=== PATIENT | female | born 1930 | race Caucasian/White ===

== ENCOUNTER 2018-08-22 06:51 | Inpatient (IN) | payer MEDICARE, BC ==
[~2018-08-22] VITALS: Ht 152.4 cm; Wt 70.0 kg
[~2018-08-22 06:51] MED LIST: ADVAIR 250-501 EACH PO; ALPHAGAN P5 ML OP; ASPIRIN EC81 MG PO; BENZONATATE100 MG PO; CARVEDILOL12.5 MG PO; CITALOPRAM HBR20 MG PO; CLONIDINE HCL0.3 MG PO; DOCUSATE SODIU100 MG PO; HYDRALAZINE HCL25 MG PO; JANUVIA100 MG PO; KEFLEX500 MG PO; KLOR-CON M2020 MEQ PEG; LANTUS 3ML100 UNITS/ SQ; LASIX40 MG PO; LATANOPROST2.5 ML OP; LEVOTHYROXINE50 MCG PO; LISINOPRIL10 MG PO; MAPAP ARTHRITI650 MG PO; MIRTAZAPINE15 MG PO; MUCINEX600 MG PO; OMEPRAZOLE40 MG PO; POLYETHYLENE GL17 GM PO; PROMETHAZINE HC25 M1 PO; VENTOLIN HFA18 GM INH
--- OUTSIDE RECORDS SUMMARY | 2018-08-22 06:53 | XMS REPORT ---
Author [facility] Address Unknown Phone Unavailable Care Team Providers Care Landing Signal Officer Name Role Phone Unavailable Unavailable Payers Payer Name Policy Type Policy Number Effective Date Expiration Date Problems This patient has no known problems. Allergies, Adverse Reactions, Alerts Allergy Name Allergy Type Status Severity Reaction(s) Onset Date Inactive Date Treating Clinician Comments Penicillins DA Active SV 2018-07-28 00:00:00 Sulfa (Sulfonamide Antibiotics) DA Active MO 2018-07-28 00:00:00 codeine DA Active MO 2018-07-28 00:00:00 Medications This patient has no known medications.
[2018-08-22] MEDS ORDERED: HYDRALAZINE HCL 20 MG/ML VIAL IV ONE (09:00)
[2018-08-22] MEDS ORDERED: ALBUTEROL/IPRATROPIUM 3 ML NEB NEB ONE ×2 (09:00→12:30)
[2018-08-22 09:06] LABS: CLARITY,URINE SL CLOUDY (CLEAR); COLOR,URINE YELLOW (YELLOW)
[2018-08-22 09:07] LABS: KETONES,URINE NEGATIVE (NEGATIVE); LEUKOCYTE ESTERASE ,URINE 1+ (NEGATIVE); NITRITE,URINE NEGATIVE (NEGATIVE); PROTEIN,URINE DIPSTICK 2+ (NEGATIVE)
[2018-08-22 09:08] LABS: AMPHETAMINES SCREEN,URINE NEGATIVE (NEGATIVE); BENZODIAZEPINES SCREEN,URINE NEGATIVE (NEGATIVE); BILIRUBIN,URINE NEGATIVE (NEGATIVE); PHENCYCLIDINE SCREEN,URINE NEGATIVE (NEGATIVE); URINE UROBILINOGEN 0.2 mg/dL (0.2 - 1)
[2018-08-22 09:14] LABS: BACTERIA,URINE MODERATE /HPF; EPITHELIAL CELLS,URINE RARE /LPF
[2018-08-22 09:15] LABS: WBC,URINE (MAN) 0-5 /HPF (0-5)
[2018-08-22 09:21] LABS: BASOPHILS % 0.4 % (0.0-1.0); EOSINOPHILS # (AUTO) 0.1 (0.0-0.4); EOSINOPHILS % 1.2 % (0.0-6.0); LYMPHOCYTES # (AUTO) 0.8 (1.0-3.2); MEAN CORPUSCULAR HEMOGLOBIN 24.9 pg (28-32); MEAN CORPUSCULAR HGB CONC 29.3 g/dL (31-35); MEAN CORPUSCULAR VOLUME 85.1 fL (81-99); MONOCYTES # (AUTO) 0.5 (0.2-0.8); MONOCYTES % 6.8 % (4.4-11.3); NEUTROPHILS # (AUTO) 5.9 (2.1-6.9); NEUTROPHILS % 80.1 % (38.7-80.0); PLATELET COUNT 278 x10e3/uL (140-360); RED BLOOD COUNT 3.29 x10e6/uL (3.6-5.1); RED CELL DISTRIBUTION WIDTH 17.1 % (11.7-14.4)
[2018-08-22 09:31] LABS: HEMOGLOBIN 8.2 g/dL (12.0-16.0)
[2018-08-22 09:47] LABS: ALBUMIN 2.9 g/dL (3.5-5.0); ALBUMIN/GLOBULIN RATIO 0.7 (0.8-2.0); ALKALINE PHOSPHATASE 56 IU/L (40-150); ANION GAP 18.2 mmol/L (8-16); BLOOD UREA NITROGEN 43 mg/dL (7-26); BUN/CREATININE RATIO 15 (6-25); CALCIUM 9.5 mg/dL (8.4-10.2); CARBON DIOXIDE 20 mmol/L (22-29); CHLORIDE 105 mmol/L (98-107); CREATININE, SERUM 2.85 mg/dL (0.57-1.11); EST GLOMERULAR FILTRATION RATE 16 ML/MIN (60-); GLUCOSE 67 mg/dL (74-118); MAGNESIUM 2.2 MG/DL (1.3-2.1); PHOSPHORUS 4.8 MG/DL (2.3-4.7); POTASSIUM 4.2 mmol/L (3.5-5.1); SODIUM 139 mmol/L (136-145)
[2018-08-22 09:48] LABS: ALANINE AMINOTRANSFERASE < 6 IU/L (0-55)
[2018-08-22 09:49] LABS: B-TYPE NATRIURETIC PEPTIDE2 777.7 pg/mL (0-100)
[2018-08-22 10:07] LABS: THYROID STIMULATING HORMONE 1.336 uIU/mL (0.350-4.940)
[2018-08-22] MEDS ORDERED: DEXTROSE 10% 250 ML IV SCH (10:30)
[2018-08-22] MEDS ORDERED: SODIUM CHLORIDE 0.9% 500ML 500 ML IV ONE (10:30)
--- NOTE | 2018-08-22 10:50 | Diagnostic Imaging Report ---
PROCEDURE: CHEST SINGLE (PORTABLE) COMPARISON: NONE INDICATIONS: SHORTNESS OF BREATH, FEVER FINDINGS: LUNGS: There is mild pulmonary vascular congestion. PLEURA: No effusions or pneumothorax. HEART & MEDIASTINUM: The heart is prominent. BONES & SOFT TISSUES: No acute findings. CONCLUSION: Mild pulmonary vascular congestion. Jarred Briggs D.O. Dictated by: Jarred Briggs D.O. on 08/22/2018 at 10:59 Electronically approved by: Jarred Briggs D.O. on 08/22/2018 at 10:59
[2018-08-22] MEDS ORDERED: SODIUM CHLORIDE FLUSH 10 ML SYR INJ PRN (11:30)
[2018-08-22] MEDS ORDERED: ONDANSETRON HCL INJ 2 MG/ML VIAL IV PRN ×2 (11:30→16:15)
[2018-08-22] MEDS ORDERED: CEFTRIAXONE SOD 1 GM VIAL IV NR (12:00)
[2018-08-22] MEDS ORDERED: METHYLPREDNISOLONE SOD SUCC 125 MG/2ML VIAL IV ONE (12:30)
[2018-08-22] MEDS: ALBUTEROL/IPRATROPIUM 3 ML NEB NEB SCH ×2 (13:00→19:25)
[2018-08-22] MEDS ORDERED: DEXTROSE 50% SYRINGE 50 ML IV PRN (16:00)
[2018-08-22] MEDS ORDERED: ACETAMINOPHEN 325 MG TAB PO PRN (16:15)
[2018-08-22] MEDS: SALMETEROL/FLUTICASONE 250/50 INH SCH (17:00)
[2018-08-22] MEDS: BRIMONIDINE TARTRATE 0.15% OPTH DRPS 10ML BTL OP SCH (17:00)
[2018-08-22] MEDS: CARVEDILOL 12.5 MG TAB PO SCH (18:22)
[2018-08-22] MEDS: PANTOPRAZOLE SOD 40 MG TABEC PO SCH (18:23)
[2018-08-22 20:00] VITALS: BP 114/73
[2018-08-22 20:15] VITALS: BP 114/73
[2018-08-22] MEDS ORDERED: INSULIN DETEMIR 100 UNIT/ML PEN SQ SCH (21:00)
[2018-08-22] MEDS: CLONIDINE HCL 0.3 MG TAB PO SCH (21:50)
[2018-08-22] MEDS: DOCUSATE SODIUM 100 MG CAP PO SCH (21:50)
[2018-08-22] MEDS: BENZONATATE 100 MG CAP PO SCH (21:50)
[2018-08-22] MEDS: CITALOPRAM HYDROBROMIDE 20 MG TAB PO SCH (21:50)
[2018-08-22] MEDS: MIRTAZAPINE 15 MG TAB PO SCH (21:50)
[2018-08-22] MEDS: LATANOPROST(OPTH) 2.5 ML BTL OP SCH (21:50)
[2018-08-23] VITALS (8 sets, daily range): BP systolic 169–189; BP diastolic 53–75
[2018-08-23] MEDS: ALBUTEROL/IPRATROPIUM 3 ML NEB NEB SCH ×4 (00:40→19:25)
[2018-08-23] MEDS: HYDRALAZINE HCL 20 MG/ML VIAL IV PRN ×2 (01:06→05:30)
[2018-08-23 05:07] LABS: BASOPHILS % 0.1 % (0.0-1.0); HEMATOCRIT 25.7 % (34.2-44.1); HEMOGLOBIN 7.8 g/dL (12.0-16.0); LYMPHOCYTES # (AUTO) 0.9 (1.0-3.2); LYMPHOCYTES % 12.4 % (18.0-39.1); MEAN CORPUSCULAR HEMOGLOBIN 25.6 pg (28-32); MEAN CORPUSCULAR HGB CONC 30.4 g/dL (31-35); MEAN CORPUSCULAR VOLUME 84.3 fL (81-99); MONOCYTES # (AUTO) 0.2 (0.2-0.8); MONOCYTES % 3.1 % (4.4-11.3); NEUTROPHILS # (AUTO) 6.1 (2.1-6.9); NEUTROPHILS % 83.4 % (38.7-80.0); PLATELET COUNT 318 x10e3/uL (140-360); RED BLOOD COUNT 3.05 x10e6/uL (3.6-5.1); RED CELL DISTRIBUTION WIDTH 17.1 % (11.7-14.4)
[2018-08-23 05:38] LABS: ANION GAP 18.1 mmol/L (8-16); CALCIUM 9.4 mg/dL (8.4-10.2); CREATININE, SERUM 3.02 mg/dL (0.57-1.11); MAGNESIUM 2.4 MG/DL (1.3-2.1); POTASSIUM 4.1 mmol/L (3.5-5.1)
[2018-08-23 05:48] LABS: FERRITIN 52.98 ng/mL (4.63-204.00)
[2018-08-23] MEDS: LEVOTHYROXINE SODIUM 25 MCG TABLET PO SCH (06:08)
--- NOTE | 2018-08-23 06:33 | Diagnostic Imaging Report ---
EXAMINATION: CHEST SINGLE (PORTABLE) INDICATION: Syncope ^SOB ^[id number] ^[id number] COMPARISON: None FINDINGS: AP view TUBES and LINES: None. LUNGS: Lungs are well inflated. Lungs are clear. There is no evidence of pneumonia or pulmonary edema. PLEURA: No pleural effusion or pneumothorax. HEART AND MEDIASTINUM: The cardiomediastinal silhouette is unremarkable. BONES AND SOFT TISSUES: No acute osseous lesion. Soft tissues are unremarkable. UPPER ABDOMEN: No free air under the diaphragm. IMPRESSION: No acute thoracic abnormality. Signed by: DR. Serjio Chapman MD on 08/23/2018 6:30 AM
[2018-08-23] MEDS: CLONIDINE HCL 0.3 MG TAB PO SCH ×3 (06:45→21:10)
[2018-08-23] MEDS ORDERED: DEXTROSE 50% SYRINGE 50 ML IV PRN (07:15)
[2018-08-23] MEDS ORDERED: FUROSEMIDE INJ 10 MG/ML 4 ML VIAL IV SCH (07:15)
[2018-08-23] MEDS: INSULIN LISPRO 100 UNIT/1 ML 3ML VIAL SQ SCH ×4 (07:30→21:09)
[2018-08-23] MEDS: LEVOFLOXACIN 500MG/D5W 100ML 100 ML IV SCH (07:45)
[2018-08-23] MEDS ORDERED: SODIUM CHLORIDE 0.9% 250ML 250 ML IV ONE (08:00)
[2018-08-23] MEDS ORDERED: NIFEDIPINE CR 30 MG TAB PO SCH (08:00)
[2018-08-23] MEDS: PANTOPRAZOLE SOD 40 MG TABEC PO SCH ×2 (09:00→17:00)
[2018-08-23] MEDS: FUROSEMIDE INJ 10 MG/ML 2 ML VIAL IV SCH ×2 (09:00→17:00)
[2018-08-23] MEDS: GUAIFENESIN 600MG/DEXTROMETHORPHAN 30MG TABSR PO SCH ×2 (09:00→17:00)
[2018-08-23] MEDS: BRIMONIDINE TARTRATE 0.15% OPTH DRPS 10ML BTL OP SCH ×2 (09:00→17:00)
[2018-08-23] MEDS: SALMETEROL/FLUTICASONE 250/50 INH SCH ×2 (09:00→19:25)
[2018-08-23] MEDS: BENZONATATE 100 MG CAP PO SCH ×3 (09:00→21:09)
[2018-08-23] MEDS: CARVEDILOL 12.5 MG TAB PO SCH ×2 (09:00→17:00)
[2018-08-23] MEDS: LISINOPRIL 10 MG TAB PO SCH (09:00)
[2018-08-23] MEDS: METHYLPREDNISOLONE SOD SUCC 40 MG/ML VIAL IV SCH ×2 (09:00→21:11)
[2018-08-23] MEDS ORDERED: LEVOTHYROXINE SODIUM 50 MCG TAB PO SCH (09:00)
[2018-08-23] MEDS: SITAGLIPTIN 100 MG TAB PO SCH (09:00)
[2018-08-23] MEDS: POLYETHYLENE GLYCOL 3350 17 GM PACK PO SCH (09:00)
[2018-08-23] MEDS: ASPIRIN 81 MG ENTERIC COATED PO SCH (09:00)
[2018-08-23] MEDS ORDERED: SODIUM CHLORIDE 0.9% 250ML 250 ML ONE (09:10)
[2018-08-23] MEDS: EPOETIN ALFA 10000 UNIT/ML VIAL SC SCH (09:30)
[2018-08-23] MEDS: SODIUM FERRIC GLUCONATE COMPLX 125 MG in SODIUM CHLORIDE 0.9% 100 ML 100 ML IV SCH (10:30)
[2018-08-23] MEDS ORDERED: DEXTROSE 10% 250 ML IV SCH (10:30)
[2018-08-23 11:18] LABS: BILIRUBIN,URINE NEGATIVE (NEGATIVE); CLARITY,URINE SL CLOUDY (CLEAR); COLOR,URINE YELLOW (YELLOW); KETONES,URINE NEGATIVE (NEGATIVE); LEUKOCYTE ESTERASE ,URINE 1+ (NEGATIVE); NITRITE,URINE NEGATIVE (NEGATIVE); PROTEIN,URINE DIPSTICK 2+ (NEGATIVE); URINE UROBILINOGEN 0.2 mg/dL (0.2 - 1)
[2018-08-23 11:25] LABS: WBC,URINE (MAN) >50 /HPF (0-5)
[2018-08-23 11:26] LABS: BACTERIA,URINE MANY /HPF; EPITHELIAL CELLS,URINE FEW /LPF; RBC,URINE 0-5 /HPF (0-5)
[2018-08-23 12:11] LABS: CREATININE,URINE RANDOM 69.19 mg/dL (47-110); SODIUM,URINE 53 mmol/L
[2018-08-23 12:20] LABS: EOSINOPHIL SMEAR,URINE NONE SEEN (NONE SEEN)
[2018-08-23 13:13] LABS: TOTAL PROTEIN, URINE 265.2 mg/dL (1-14)
--- NOTE | 2018-08-23 14:06 | Consultation ---
DATE OF CONSULTATION: NEPHROLOGY CONSULTATION REASON FOR CONSULTATION: Chronic kidney disease. CHIEF COMPLAINT: Altered mental status. 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 Comes in from the custodial after found to be very difficult to arouse with underlying wheezing, cough and congestion. The patient reports that her sugars were low. The night before admission she had taken some insulin, but did not eat. Was found to have a glucose level in the 60s. Was brought here for further evaluation. There is also some reports that she also had been having some wheezing, cough, congestion, and not feeling well. The patient was seen and evaluated at bedside on the medical floor. Found to be doing well with no other complaints. The patient reports having type 2 diabetes for a significant number of years, as well as hypertension. Was told by her original kidney doctor that it is the etiology for her renal failure. REVIEW OF SYSTEMS: Pertinent positives are wheezing, altered mental status, cough, congestion. Pertinent negatives are denies any chest pain, palpitations, nausea, vomiting, diarrhea, dysuria, hematuria, frequency, urgency, lightheadedness, dizziness, abdominal pain, headache, fever, and no other complaints. The rest of the 14-point review of systems have been reviewed with the patient and are negative. ALLERGIES: PENICILLIN, SULFA, CODEINE. PAST SURGICAL HISTORY: Tonsillectomy, hysterectomy. PAST MEDICAL HISTORY: Hypothyroidism, type 2 diabetes mellitus, anemia, chronic generalized weakness. FAMILY HISTORY: Type 2 diabetes. Cancer in the family and CVA. SOCIAL HISTORY: No drugs. No alcohol. Does not smoke. Lives in a custodial. PHYSICAL EXAMINATION VITAL SIGNS: Temperature is 98.2, pulse 68, respiratory rate is 18, blood pressure is 189/74, pulse ox 95% on room air. GENERAL: Not in acute distress. Alert and oriented times 3. Cooperative on examination. HEENT: Head is normocephalic and atraumatic. Eyes: Pupils equal, round and reactive to light bilaterally. Extraocular movements intact bilaterally. NECK: Supple. Good range of motion. Throat with no evidence of any erythema or exudates in the posterior pharynx. Has poor dentition. PULMONARY: Clear to auscultation bilaterally. No wheezing. No rales. No rhonchi. No crackles appreciated. CARDIOVASCULAR: Positive S1 and S2. No murmurs, rubs or gallops appreciated. ABDOMEN: Soft, nondistended and nontender to palpation. Bowel sounds present. MUSCULOSKELETAL: Strength is 5/5 throughout. No evidence of any muscle deficit on examination. No weakness appreciated. NEUROLOGICAL: Cranial nerves II-XII are grossly intact. No evidence of any neurological deficits on exam. SKIN: Intact. Warm to touch. Good cap refill. PSYCHIATRIC: Normal affect and mood. EXTREMITIES: No edema. Good range of motion throughout. LABS FINDINGS: Show a white count of 7.3, hemoglobin 10.8, hematocrit 26, and platelets of 318,000. Chemistry: Sodium is 139, potassium is 4.1, chloride is 105, bicarbonate is 20, anion gap of 18, BUN 49, creatinine is 3. A1c 5.3. Iron saturation 7%. BNP 1087. AST 15, ALT less than 6, total bilirubin is 0.2. Folate is 9. Vitamin B12 is 1167. Urinalysis is negative. Toxicology screen and UDS was negative. MICROBIOLOGY: Blood and urine cultures are pending. IMAGING STUDIES: Chest x-ray showed no acute cardiothoracic abnormality. IMPRESSION 1. Chronic kidney disease, stage 4 with underlying chronic disease ongoing for several years with prior creatinine in 2016 to be 1.1: Unsure of baseline creatinine. 2. Iron deficiency anemia. 3. Wheezing with cough and congestion. 4. Metabolic acidosis. 5. Secondary hyperparathyroidism. PLAN: At this time, I would go ahead and get a renal ultrasound to look for chronicity of disease. Get urine studies, urine protein to creatinine, urine sodium, microalbumin to creatinine, urine eosinophils, and UA with microscopy. The patient was found to be iron deficient, which I will start her on Ferrlecit iron infusion, and also give a dose of Epogen 10,000 subcutaneous times 1. I will also start her on bicarb tabs 1300 mg p.o. b.i.d. I will also get intact PTH and vitamin D level, mag, and phos. The patient will need to follow up with her original primary [employer] combat [employer] in [place] once she is discharged. I discussed this with the family and the daughter at bedside. Job#: [id number] AKUA
[2018-08-23] MEDS: SODIUM BICARBONATE 650 MG TAB PO SCH (17:00)
[2018-08-23 17:28] LABS: HEMATOCRIT 25.2 % (34.2-44.1); HEMOGLOBIN 7.8 g/dL (12.0-16.0); LYMPHOCYTES # (AUTO) 0.9 (1.0-3.2); LYMPHOCYTES % 12.4 % (18.0-39.1); MEAN CORPUSCULAR HEMOGLOBIN 26.1 pg (28-32); MEAN CORPUSCULAR VOLUME 84.3 fL (81-99); MONOCYTES # (AUTO) 0.3 (0.2-0.8); MONOCYTES % 4.6 % (4.4-11.3); NEUTROPHILS # (AUTO) 5.7 (2.1-6.9); NEUTROPHILS % 82.3 % (38.7-80.0); PLATELET COUNT 329 x10e3/uL (140-360); RED BLOOD COUNT 2.99 x10e6/uL (3.6-5.1); RED CELL DISTRIBUTION WIDTH 16.9 % (11.7-14.4)
[2018-08-23 17:39] LABS: ANION GAP 20.4 mmol/L (8-16); CALCIUM 9.5 mg/dL (8.4-10.2); CREATININE, SERUM 2.94 mg/dL (0.57-1.11); POTASSIUM 4.4 mmol/L (3.5-5.1)
--- NOTE | 2018-08-23 18:08 | Diagnostic Imaging Report ---
RENAL ULTRASOUND TECHNIQUE: Ultrasound evaluation of the KIDNEYS. Color Doppler evaluation was utilized to supplement the evaluation. HISTORY: CHF, UTI, chronic kidney disease COMPARISON: None available. DISCUSSION: RIGHT KIDNEY: The right kidney measures 12 cm in length. The cortex measures 1.1 cm in thickness. Parenchyma is within normal limits. No hydronephrosis or solid mass lesions. LEFT KIDNEY: The left kidney measures 10 cm in length. The cortex measures 1.3 cm in thickness. Parenchyma is within normal limits. No hydronephrosis or solid mass lesions. A 1 cm anechoic focus near the inferior pole with increased through transmission, compatible with a simple cyst. BLADDER: Prevoid 224 cc, no significant residual post-void. Per the technologist performing the exam, ureteral jets were not seen during the examination. IMPRESSION: 1. No hydronephrosis. 2. Incidentally, a simple appearing 1 cm cyst near the inferior pole the left kidney. Signed by: Dr. Vance Calero D.O., M.M.M. on 08/23/2018 6:04 PM
[2018-08-23 20:12] LABS: HYPOCHROMASIA MODERATE; LYMPHOCYTES % (MANUAL) 7 % (19-48); MONOCYTES % (MANUAL) 4 % (3.4-9.0); NEUTROPHILS % (MANUAL) 87 % (40-74); PLATELET ESTIMATE ADEQUATE; PLATELET MORPHOLOGY COMMENT RARE EDTA CLUMPING; RBC MORPHOLOGY COMMENT NORMAL
[2018-08-23] MEDS: LATANOPROST(OPTH) 2.5 ML BTL OP SCH (21:07)
[2018-08-23] MEDS: CITALOPRAM HYDROBROMIDE 20 MG TAB PO SCH (21:08)
[2018-08-23] MEDS: DOCUSATE SODIUM 100 MG CAP PO SCH (21:08)
[2018-08-23] MEDS: MIRTAZAPINE 15 MG TAB PO SCH (21:09)
[2018-08-23] MEDS: INSULIN DETEMIR 100 UNIT/ML PEN SQ SCH (21:10)
[2018-08-24] VITALS (8 sets, daily range): BP systolic 133–188; BP diastolic 67–84
[2018-08-24] MEDS: HYDRALAZINE HCL 20 MG/ML VIAL IV PRN (00:09)
[2018-08-24] MEDS: ALBUTEROL/IPRATROPIUM 3 ML NEB NEB SCH ×4 (00:10→18:50)
[2018-08-24] MEDS: LEVOTHYROXINE SODIUM 25 MCG TABLET PO SCH (05:04)
[2018-08-24 05:20] LABS: BASOPHILS % 0.1 % (0.0-1.0); HEMATOCRIT 24.2 % (34.2-44.1); HEMOGLOBIN 7.3 g/dL (12.0-16.0); LYMPHOCYTES # (AUTO) 0.8 (1.0-3.2); LYMPHOCYTES % 11.2 % (18.0-39.1); MEAN CORPUSCULAR HEMOGLOBIN 25.2 pg (28-32); MEAN CORPUSCULAR HGB CONC 30.2 g/dL (31-35); MEAN CORPUSCULAR VOLUME 83.4 fL (81-99); MONOCYTES # (AUTO) 0.2 (0.2-0.8); MONOCYTES % 2.3 % (4.4-11.3); NEUTROPHILS # (AUTO) 5.9 (2.1-6.9); NEUTROPHILS % 85.2 % (38.7-80.0); PLATELET COUNT 283 x10e3/uL (140-360); RED CELL DISTRIBUTION WIDTH 16.8 % (11.7-14.4)
[2018-08-24 05:35] LABS: ANION GAP 19.5 mmol/L (8-16); CALCIUM 9.3 mg/dL (8.4-10.2); CREATININE, SERUM 2.8 mg/dL (0.57-1.11); MAGNESIUM 2.4 MG/DL (1.3-2.1); PHOSPHORUS 4.7 MG/DL (2.3-4.7); POTASSIUM 4.5 mmol/L (3.5-5.1)
[2018-08-24] MEDS: CLONIDINE HCL 0.3 MG TAB PO SCH ×3 (05:40→21:07)
[2018-08-24 05:55] LABS: FERRITIN 86.44 ng/mL (4.63-204.00)
[2018-08-24 06:55] LABS: FOLATE 8.1 ng/mL (7.0-15.4)
[2018-08-24 07:25] LABS: LYMPHOCYTES % (MANUAL) 13 % (19-48); METAMYELOCYTES % (MANUAL) 1 % (0-0); MONOCYTES % (MANUAL) 3 % (3.4-9.0); NEUTROPHILS % (MANUAL) 80 % (40-74); RBC MORPHOLOGY COMMENT NORMAL
[2018-08-24 07:26] LABS: ANISOCYTOSIS SLIGHT; HYPOCHROMASIA MODERATE; PLATELET ESTIMATE ADEQUATE; PLATELET MORPHOLOGY COMMENT NORMAL
[2018-08-24] MEDS: INSULIN LISPRO 100 UNIT/1 ML 3ML VIAL SQ SCH ×4 (07:30→21:10)
[2018-08-24] MEDS: LEVOFLOXACIN 500MG/D5W 100ML 100 ML IV SCH (07:45)
[2018-08-24] MEDS: FUROSEMIDE INJ 10 MG/ML 2 ML VIAL IV SCH ×2 (09:00→16:29)
[2018-08-24] MEDS: POLYETHYLENE GLYCOL 3350 17 GM PACK PO SCH (09:00)
[2018-08-24] MEDS: LISINOPRIL 10 MG TAB PO SCH (09:00)
[2018-08-24] MEDS: GUAIFENESIN 600MG/DEXTROMETHORPHAN 30MG TABSR PO SCH ×2 (09:00→16:30)
[2018-08-24] MEDS: SODIUM BICARBONATE 650 MG TAB PO SCH ×2 (09:00→16:31)
[2018-08-24] MEDS: SITAGLIPTIN 100 MG TAB PO SCH (09:00)
[2018-08-24] MEDS: SALMETEROL/FLUTICASONE 250/50 INH SCH ×2 (09:00→18:50)
[2018-08-24] MEDS: CARVEDILOL 12.5 MG TAB PO SCH ×2 (09:00→16:30)
[2018-08-24] MEDS: ASPIRIN 81 MG ENTERIC COATED PO SCH (09:00)
[2018-08-24] MEDS: PANTOPRAZOLE SOD 40 MG TABEC PO SCH ×2 (09:00→16:31)
[2018-08-24] MEDS: BENZONATATE 100 MG CAP PO SCH (09:00)
[2018-08-24] MEDS: SODIUM FERRIC GLUCONATE COMPLX 125 MG in SODIUM CHLORIDE 0.9% 100 ML 100 ML IV SCH (09:00)
[2018-08-24] MEDS: BRIMONIDINE TARTRATE 0.15% OPTH DRPS 10ML BTL OP SCH ×2 (09:00→16:29)
[2018-08-24] MEDS: NIFEDIPINE CR 30 MG TAB PO SCH (10:30)
--- NOTE | 2018-08-24 10:42 | Progress Note ---
DATE: August 24, 2018 NEPHROLOGY PROGRESS NOTE SUBJECTIVE: Patient is doing well today with no complaints. Currently, has no other complaints at this time. OBJECTIVE VITAL SIGNS: She is afebrile. Temperature is 96.9, pulse 73, respiratory rate is 18, blood pressure was 188/77, pulse ox 98% on room air. GENERAL: Not in acute distress. Alert and oriented times 3. Cooperative on examination. HEENT: Head is normocephalic and atraumatic. Eyes: Pupils equal, round and reactive to light bilaterally. Extraocular movements intact bilaterally. NECK: Supple. Good range of motion. Throat with no evidence of any erythema or exudates in the posterior pharynx. Has poor dentition. PULMONARY: Clear to auscultation bilaterally. No wheezing. No rales. No rhonchi. No crackles appreciated. CARDIOVASCULAR: Positive S1 and S2. No murmurs, rubs or gallops appreciated. ABDOMEN: Soft, nondistended and nontender to palpation. Bowel sounds present. MUSCULOSKELETAL: Strength is 5/5 throughout. No evidence of any muscle deficit on examination. No weakness appreciated. NEUROLOGICAL: Cranial nerves II-XII are grossly intact. No evidence of any neurological deficits on exam. SKIN: Intact. Warm to touch. Good cap refill. PSYCHIATRIC: Normal affect and mood. EXTREMITIES: No edema. Good range of motion throughout. LABS: Show a white count of 6.9, hemoglobin 7.2, hematocrit 22.4, and platelets of 283,000. Chemistry: Sodium 142, potassium is 4.5, chloride 107, bicarb 20, anion gap of 19, BUN is 61, creatinine is 2.8, glucose is 186. Iron saturation reports 80%. Intact PTH is pending. Vitamin D level is pending. MICROBIOLOGY: Blood and urine cultures no growth. IMPRESSION 1. Chronic kidney disease, stage 4: Chronic in nature. Followed with an outpatient clinic office assistant. 2. Iron deficiency anemia. 3. Wheezing with cough and congestion, improved. 4. Metabolic acidosis. 5. Secondary hyperparathyroidism. PLAN: At this time, her electrolytes are stable. Creatinine did improve likely due to anemia. She probably will need blood transfusion. She will need Epogen and iron infusion. Pending intact PTH, vitamin D level. Urine protein to creatinine ratio showed 3 g of proteinuria. It is likely due to long-standing type 2 diabetes. At this time, will continue to monitor very closely. If she is able to tolerate low-dose ORALIA inhibitor, we will determine that prior to being discharged if her potassium is stable and her blood pressure is good. At this time, will continue same plan of care and medical management. Job#: [id number] AKUA
[2018-08-24] MEDS ORDERED: BISACODYL 5 MG TAB EC PO NR ×2 (11:00→12:00)
[2018-08-24] MEDS ORDERED: ACETYLCYSTEINE 200 MG/ML 4ML VIAL INH SCH (11:00)
[2018-08-24] MEDS ORDERED: ACETYLCYSTEINE 20% INHAL SOLN 30 ML VIAL INH SCH (12:00)
[2018-08-24] MEDS: ACETYLCYSTEINE 200 MG/ML 4ML VIAL INH SCH ×2 (12:00→18:50)
[2018-08-24] MEDS ORDERED: BISACODYL 5 MG TAB EC PO ONE (12:01)
[2018-08-24] MEDS: LATANOPROST(OPTH) 2.5 ML BTL OP SCH (21:05)
[2018-08-24] MEDS: DOCUSATE SODIUM 100 MG CAP PO SCH (21:06)
[2018-08-24] MEDS: MIRTAZAPINE 15 MG TAB PO SCH (21:06)
[2018-08-24] MEDS: CITALOPRAM HYDROBROMIDE 20 MG TAB PO SCH (21:06)
[2018-08-24] MEDS: INSULIN DETEMIR 100 UNIT/ML PEN SQ SCH (21:11)
[2018-08-25] VITALS (8 sets, daily range): BP systolic 124–201; BP diastolic 59–81
[2018-08-25] MEDS: HYDRALAZINE HCL 20 MG/ML VIAL IV PRN ×2 (01:15→12:30)
[2018-08-25 05:25] LABS: BASOPHILS % 0.2 % (0.0-1.0); EOSINOPHILS % 0.2 % (0.0-6.0); HEMATOCRIT 23.9 % (34.2-44.1); HEMOGLOBIN 7.2 g/dL (12.0-16.0); LYMPHOCYTES # (AUTO) 1.9 (1.0-3.2); LYMPHOCYTES % 21.7 % (18.0-39.1); MEAN CORPUSCULAR HEMOGLOBIN 25.5 pg (28-32); MEAN CORPUSCULAR HGB CONC 30.1 g/dL (31-35); MEAN CORPUSCULAR VOLUME 84.8 fL (81-99); MONOCYTES # (AUTO) 0.9 (0.2-0.8); MONOCYTES % 10.4 % (4.4-11.3); NEUTROPHILS # (AUTO) 5.6 (2.1-6.9); PLATELET COUNT 300 x10e3/uL (140-360); RED BLOOD COUNT 2.82 x10e6/uL (3.6-5.1); RED CELL DISTRIBUTION WIDTH 16.8 % (11.7-14.4)
[2018-08-25] MEDS: LEVOTHYROXINE SODIUM 25 MCG TABLET PO SCH (05:37)
[2018-08-25] MEDS: CLONIDINE HCL 0.3 MG TAB PO SCH ×3 (05:42→21:43)
[2018-08-25 05:46] LABS: ANION GAP 17.8 mmol/L (8-16); CREATININE, SERUM 2.61 mg/dL (0.57-1.11); MAGNESIUM 2.2 MG/DL (1.3-2.1); POTASSIUM 3.8 mmol/L (3.5-5.1)
[2018-08-25] MEDS: INSULIN LISPRO 100 UNIT/1 ML 3ML VIAL SQ SCH ×4 (07:30→21:00)
[2018-08-25] MEDS: ALBUTEROL/IPRATROPIUM 3 ML NEB NEB SCH ×4 (07:32→21:02)
[2018-08-25] MEDS: ACETYLCYSTEINE 200 MG/ML 4ML VIAL INH SCH ×4 (07:32→21:02)
[2018-08-25] MEDS: SALMETEROL/FLUTICASONE 250/50 INH SCH (07:47)
[2018-08-25] MEDS ORDERED: FUROSEMIDE INJ 10 MG/ML 2 ML VIAL IV ONE (08:15)
[2018-08-25 08:56] LABS: EOSINOPHILS % (MANUAL) 2 % (0-7); HYPOCHROMASIA MODERATE; LYMPHOCYTES % (MANUAL) 23 % (19-48); METAMYELOCYTES % (MANUAL) 2 % (0-0); MONOCYTES % (MANUAL) 10 % (3.4-9.0); MYELOCYTES % (MANUAL) 1 % (0-0); NEUTROPHILS % (MANUAL) 62 % (40-74); PLATELET ESTIMATE ADEQUATE; PLATELET MORPHOLOGY COMMENT NORMAL; RBC MORPHOLOGY COMMENT NORMAL
[2018-08-25] MEDS ORDERED: CITRATE OF MAGNESIA 300ML BOTTLE PO NR (09:00)
--- NOTE | 2018-08-25 10:20 | Progress Note ---
DATE: August 25, 2018 NEPHROLOGY PROGRESS NOTE SUBJECTIVE: Patient is doing well today with no complaints. She is sitting in a chair. OBJECTIVE VITAL SIGNS: Temperature is 96.7, pulse 72, respiratory rate 17, blood pressure 170/74. Pulse ox 94% on room air. LAB FINDINGS: White count 8.6, hemoglobin 7.3, hematocrit 24, platelets 300. Chemistry: Sodium 143, potassium 3.8, chloride 109, bicarb 20, anion gap 17, BUN 67, creatinine 2.6, glucose 101. MICROBIOLOGY: None. PHYSICAL EXAMINATION GENERAL: Not in acute distress. Alert and oriented times 3. Cooperative on examination. HEENT: Head is normocephalic and atraumatic. Eyes: Pupils are equal, round and reactive to light bilaterally. Extraocular movements intact bilaterally. NECK: Supple. Good range of motion. Throat with no evidence of any erythema or exudates in the posterior pharynx. Has poor dentition. PULMONARY: Clear to auscultation bilaterally. No wheezing. No rhonchi. No rales. No crackles appreciated. CARDIOVASCULAR: Positive S1 and S2. No murmurs, rubs or gallops appreciated. ABDOMEN: Soft, nondistended and nontender to palpation. Bowel sounds present. MUSCULOSKELETAL: Strength is 5/5 throughout. No evidence of any muscle deficit on examination. No weakness appreciated. NEUROLOGICAL: Cranial nerves II through XII are grossly intact. No evidence of any neurological deficits on exam. SKIN: Intact. Warm to touch. Good cap refill. PSYCHIATRIC: Normal affect and mood. EXTREMITIES: No edema. Good range of motion throughout. IMPRESSION 1. Chronic kidney disease, stage 4, chronic in nature. The patient is following up with Dr. Harrison as an outpatient inside sales manager. She will continue to follow with him. 2. Iron deficiency anemia. 3. Wheezing, cough and congestion, improved. 4. Metabolic acidosis, improving. 5. Secondary hyperparathyroidism. 6. Hypertension. PLAN: At this time, her electrolytes are stable. BUN and creatinine are at baseline. The BUN is slightly elevated, but she has no uremic symptoms. Will continue with iron infusions and Epogen. Her renal failure is likely due to longstanding type-2 diabetes with proteinuria. She will be unable to tolerate a low-dose ORALIA inhibitor due to her renal function. Will continue the same plan of care. From a renal standpoint, she is cleared to be discharged. Follow up with her primary inside sales manager. Otherwise, we will continue to follow closely. We will add low-dose hydralazine 50 mg p.o. b.i.d. for elevated blood pressure. Job#: [id number] ADÁN
[2018-08-25] MEDS: FUROSEMIDE INJ 10 MG/ML 2 ML VIAL IV SCH ×2 (10:26→17:37)
[2018-08-25] MEDS: SODIUM FERRIC GLUCONATE COMPLX 125 MG in SODIUM CHLORIDE 0.9% 100 ML 100 ML IV SCH (10:26)
[2018-08-25] MEDS: BRIMONIDINE TARTRATE 0.15% OPTH DRPS 10ML BTL OP SCH ×2 (10:26→17:37)
[2018-08-25] MEDS: SODIUM BICARBONATE 650 MG TAB PO SCH ×2 (10:27→17:38)
[2018-08-25] MEDS: GUAIFENESIN 600MG/DEXTROMETHORPHAN 30MG TABSR PO SCH ×2 (10:27→17:38)
[2018-08-25] MEDS: NIFEDIPINE CR 30 MG TAB PO SCH (10:27)
[2018-08-25] MEDS: SITAGLIPTIN 100 MG TAB PO SCH (10:27)
[2018-08-25] MEDS: CARVEDILOL 12.5 MG TAB PO SCH ×2 (10:27→17:38)
[2018-08-25] MEDS: POLYETHYLENE GLYCOL 3350 17 GM PACK PO SCH (10:27)
[2018-08-25] MEDS: LISINOPRIL 10 MG TAB PO SCH (10:27)
[2018-08-25] MEDS: EPOETIN ALFA 10000 UNIT/ML VIAL SC SCH (10:27)
[2018-08-25] MEDS: PANTOPRAZOLE SOD 40 MG TABEC PO SCH ×2 (10:27→17:38)
[2018-08-25] MEDS: LEVOFLOXACIN 500MG/D5W 100ML 100 ML IV SCH (11:30)
[2018-08-25] MEDS: HYDRALAZINE HCL 25 MG TAB PO SCH ×2 (12:30→17:37)
[2018-08-25] MEDS: CITALOPRAM HYDROBROMIDE 20 MG TAB PO SCH ×2 (20:20→21:00)
[2018-08-25] MEDS: MIRTAZAPINE 15 MG TAB PO SCH (20:20)
[2018-08-25] MEDS: DOCUSATE SODIUM 100 MG CAP PO SCH ×2 (20:20→21:00)
[2018-08-25] MEDS: INSULIN DETEMIR 100 UNIT/ML PEN SQ SCH (21:00)
[2018-08-25] MEDS: LATANOPROST(OPTH) 2.5 ML BTL OP SCH (21:42)
[2018-08-26] VITALS: BP 133/64
[2018-08-26] MEDS: ACETYLCYSTEINE 200 MG/ML 4ML VIAL INH SCH ×4 (01:17→19:17)
[2018-08-26] MEDS: ALBUTEROL/IPRATROPIUM 3 ML NEB NEB SCH ×4 (01:17→19:17)
[2018-08-26 04:00] VITALS: BP 140/62
[2018-08-26] MEDS: LEVOTHYROXINE SODIUM 25 MCG TABLET PO SCH (05:58)
[2018-08-26] MEDS: CLONIDINE HCL 0.3 MG TAB PO SCH ×3 (05:58→22:00)
[2018-08-26 06:56] LABS: BASOPHILS % 0.2 % (0.0-1.0); EOSINOPHILS # (AUTO) 0.3 (0.0-0.4); EOSINOPHILS % 3.5 % (0.0-6.0); HEMATOCRIT 24.9 % (34.2-44.1); HEMOGLOBIN 7.5 g/dL (12.0-16.0); LYMPHOCYTES # (AUTO) 1.6 (1.0-3.2); LYMPHOCYTES % 18.4 % (18.0-39.1); MEAN CORPUSCULAR HEMOGLOBIN 25.1 pg (28-32); MEAN CORPUSCULAR HGB CONC 30.1 g/dL (31-35); MEAN CORPUSCULAR VOLUME 83.3 fL (81-99); MONOCYTES % 11.1 % (4.4-11.3); NEUTROPHILS # (AUTO) 5.6 (2.1-6.9); NEUTROPHILS % 64.5 % (38.7-80.0); PLATELET COUNT 279 x10e3/uL (140-360); RED BLOOD COUNT 2.99 x10e6/uL (3.6-5.1); RED CELL DISTRIBUTION WIDTH 16.8 % (11.7-14.4)
[2018-08-26 07:12] LABS: ANION GAP 16.9 mmol/L (8-16); CALCIUM 9.1 mg/dL (8.4-10.2); CREATININE, SERUM 2.62 mg/dL (0.57-1.11); MAGNESIUM 2.7 MG/DL (1.3-2.1); POTASSIUM 3.9 mmol/L (3.5-5.1)
[2018-08-26 08:00] VITALS: BP 177/67
[2018-08-26] MEDS: INSULIN LISPRO 100 UNIT/1 ML 3ML VIAL SQ SCH ×4 (08:00→21:00)
[2018-08-26 08:39] LABS: EOSINOPHILS % (MANUAL) 4 % (0-7); LYMPHOCYTES % (MANUAL) 25 % (19-48); MONOCYTES % (MANUAL) 3 % (3.4-9.0); NEUTROPHILS % (MANUAL) 68 % (40-74); PLATELET ESTIMATE ADEQUATE; PLATELET MORPHOLOGY COMMENT NORMAL; RBC MORPHOLOGY COMMENT NORMAL
[2018-08-26] MEDS: BRIMONIDINE TARTRATE 0.15% OPTH DRPS 10ML BTL OP SCH ×2 (09:00→17:10)
[2018-08-26] MEDS: POLYETHYLENE GLYCOL 3350 17 GM PACK PO SCH (09:00)
--- NOTE | 2018-08-26 09:27 | Diagnostic Imaging Report ---
EXAM: XR CHEST 2 VIEWS DATE: 08/26/2018 7:46 AM INDICATION: CHF COMPARISON: 08/23/2018, no report available FINDINGS: Lines and Tubes: None Heart and Mediastinum: Heart prominent. Prominence of the abhijit. Lungs and Pleura: Patchy opacity right lung base. Bones and Soft Tissues: No acute findings. IMPRESSION: 1. Right basilar atelectasis versus pneumonia. 2. Hilar prominence could represent prominent pulmonary arteries or adenopathy. CT chest with contrast recommended after resolution of acute symptoms. Signed by: Dr. Edward Page MD on 08/26/2018 9:23 AM
[2018-08-26] MEDS: METHYLPREDNISOLONE SOD SUCC 40 MG/ML VIAL IV SCH ×3 (09:43→21:00)
[2018-08-26] MEDS: HYDRALAZINE HCL 25 MG TAB PO SCH ×2 (09:43→17:11)
[2018-08-26] MEDS: FUROSEMIDE INJ 10 MG/ML 2 ML VIAL IV SCH ×2 (09:43→17:10)
[2018-08-26] MEDS: LEVOFLOXACIN 500MG/D5W 100ML 100 ML IV SCH (09:43)
[2018-08-26] MEDS: SITAGLIPTIN 100 MG TAB PO SCH (09:44)
[2018-08-26] MEDS: CARVEDILOL 12.5 MG TAB PO SCH ×2 (09:44→17:11)
[2018-08-26] MEDS: LISINOPRIL 10 MG TAB PO SCH (09:44)
[2018-08-26] MEDS: PANTOPRAZOLE SOD 40 MG TABEC PO SCH ×2 (09:44→17:11)
[2018-08-26] MEDS: NIFEDIPINE CR 30 MG TAB PO SCH (09:44)
[2018-08-26] MEDS: SODIUM BICARBONATE 650 MG TAB PO SCH ×2 (09:44→17:11)
[2018-08-26 12:00] VITALS: BP 155/58
--- NOTE | 2018-08-26 13:36 | Progress Note ---
DATE: NEPHROLOGY PROGRESS NOTE SUBJECTIVE: Patient is doing well today with no other complaints. She was planning on leaving today but was told that she will stay. OBJECTIVE VITALS: Temperature is afebrile, pulse 68, respiratory rate is 18, blood pressure 177/67. O2 sat is 98% on room air. LAB FINDINGS: Showed a white count is 8.7, hemoglobin 7.5, hematocrit is 25, platelets of 279. Chemistry: Sodium 145, potassium 3.9, chloride 109, bicarb 23, anion gap of 16.9, BUN 71. Her creatinine is at baseline at 2.6 and GFR of 17. Urinalysis none. MICROBIOLOGY: None. IMAGING STUDIES: Chest x-ray shows right basilar atelectasis versus pneumonia. PHYSICAL EXAMINATION GENERAL: Not in acute distress. Alert and oriented times 3. Cooperative on examination. HEENT: Head normocephalic and atraumatic. Eyes: Pupils are equal, round and reactive to light bilaterally. Extraocular movements intact bilaterally. NECK: Supple. Good range of motion. Throat, no evidence of any erythema or exudates in the posterior pharynx. Has poor dentition. PULMONARY: Clear to auscultation bilaterally. No wheezing. No rales. No rhonchi. No crackles appreciated. CARDIOVASCULAR: Positive S1 and S2. No murmurs, rubs or gallops appreciated. ABDOMEN: Soft, nondistended and nontender to palpation. Bowel sounds present. MUSCULOSKELETAL: Strength is 5/5 throughout. No evidence of any muscle deficit on examination. No weakness appreciated. NEUROLOGICAL: Cranial nerves II through XII are grossly intact. No evidence of any neurological deficits on exam. SKIN: Intact. Warm to touch. Good cap refill. PSYCHIATRIC: Normal affect and mood. EXTREMITIES: No edema. Good range of motion throughout. IMPRESSION 1. Chronic kidney disease, stage 4, at baseline. 2. Anemia of chronic kidney disease. 3. Secondary hyperparathyroidism. PLAN: At this time, her creatinine is stable at baseline. She does not need any further workup at this time. She does have some proteinuria as well. We will continue with iron infusions as well as erythropoietin. We will continue same plan of care. Medications adjusted accordingly. Job#: [id number] CLEM
[2018-08-26] MEDS: SODIUM FERRIC GLUCONATE COMPLX 125 MG in SODIUM CHLORIDE 0.9% 100 ML 100 ML IV SCH (14:00)
[2018-08-26] MEDS: GUAIFENESIN 600 MG TAB PO SCH ×2 (14:30→21:00)
[2018-08-26 16:00] VITALS: BP 169/72
[2018-08-26 20:00] VITALS: BP 148/64
[2018-08-26] MEDS: MIRTAZAPINE 15 MG TAB PO SCH (21:00)
[2018-08-26] MEDS: LATANOPROST(OPTH) 2.5 ML BTL OP SCH (21:00)
[2018-08-26] MEDS: CITALOPRAM HYDROBROMIDE 20 MG TAB PO SCH (21:00)
[2018-08-26] MEDS: INSULIN DETEMIR 100 UNIT/ML PEN SQ SCH (21:00)
[2018-08-26] MEDS: DOCUSATE SODIUM 100 MG CAP PO SCH (21:31)
[2018-08-27] VITALS (7 sets, daily range): BP systolic 138–178; BP diastolic 62–77
[2018-08-27] MEDS: GUAIFENESIN 600 MG TAB PO SCH ×4 (00:38→18:00)
[2018-08-27] MEDS: ALBUTEROL/IPRATROPIUM 3 ML NEB NEB SCH ×4 (01:00→19:37)
[2018-08-27] MEDS: CLONIDINE HCL 0.3 MG TAB PO SCH ×3 (05:47→21:33)
[2018-08-27] MEDS: ACETYLCYSTEINE 200 MG/ML 4ML VIAL INH SCH ×4 (06:00→19:37)
[2018-08-27 06:27] LABS: BASOPHILS % 0.1 % (0.0-1.0); HEMATOCRIT 25.7 % (34.2-44.1); HEMOGLOBIN 7.8 g/dL (12.0-16.0); LYMPHOCYTES # (AUTO) 0.9 (1.0-3.2); LYMPHOCYTES % 9.5 % (18.0-39.1); MEAN CORPUSCULAR HEMOGLOBIN 25.6 pg (28-32); MEAN CORPUSCULAR HGB CONC 30.4 g/dL (31-35); MEAN CORPUSCULAR VOLUME 84.3 fL (81-99); MONOCYTES # (AUTO) 0.3 (0.2-0.8); MONOCYTES % 3.2 % (4.4-11.3); NEUTROPHILS # (AUTO) 7.8 (2.1-6.9); NEUTROPHILS % 81.9 % (38.7-80.0); PLATELET COUNT 267 x10e3/uL (140-360); RED BLOOD COUNT 3.05 x10e6/uL (3.6-5.1); RED CELL DISTRIBUTION WIDTH 16.6 % (11.7-14.4)
[2018-08-27] MEDS: LEVOTHYROXINE SODIUM 25 MCG TABLET PO SCH (06:43)
[2018-08-27 06:44] LABS: ANION GAP 18.3 mmol/L (8-16); CALCIUM 9.3 mg/dL (8.4-10.2); CREATININE, SERUM 2.73 mg/dL (0.57-1.11); MAGNESIUM 2.6 MG/DL (1.3-2.1); POTASSIUM 4.3 mmol/L (3.5-5.1)
[2018-08-27] MEDS: LEVOFLOXACIN 500MG/D5W 100ML 100 ML IV SCH (08:00)
[2018-08-27] MEDS: INSULIN LISPRO 100 UNIT/1 ML 3ML VIAL SQ SCH ×4 (08:00→21:44)
[2018-08-27] MEDS: SALMETEROL/FLUTICASONE 250/50 INH SCH ×3 (08:20→19:37)
[2018-08-27] MEDS: LISINOPRIL 10 MG TAB PO SCH (09:00)
[2018-08-27] MEDS: SODIUM BICARBONATE 650 MG TAB PO SCH ×2 (09:00→17:40)
[2018-08-27] MEDS: POLYETHYLENE GLYCOL 3350 17 GM PACK PO SCH (09:00)
[2018-08-27] MEDS: CARVEDILOL 12.5 MG TAB PO SCH ×2 (09:00→17:39)
[2018-08-27] MEDS: NIFEDIPINE CR 30 MG TAB PO SCH (09:00)
[2018-08-27] MEDS: HYDRALAZINE HCL 100 MG TABLET PO SCH ×2 (09:00→17:40)
[2018-08-27] MEDS: BRIMONIDINE TARTRATE 0.15% OPTH DRPS 10ML BTL OP SCH ×2 (09:00→17:39)
[2018-08-27] MEDS: SITAGLIPTIN 100 MG TAB PO SCH (09:00)
[2018-08-27] MEDS: PANTOPRAZOLE SOD 40 MG TABEC PO SCH ×2 (09:00→17:40)
[2018-08-27] MEDS ORDERED: SODIUM CHLORIDE 0.9% 250ML 250 ML ONE (09:21)
[2018-08-27] MEDS: SODIUM FERRIC GLUCONATE COMPLX 125 MG in SODIUM CHLORIDE 0.9% 100 ML 100 ML IV SCH (10:00)
[2018-08-27] MEDS: FUROSEMIDE INJ 10 MG/ML 2 ML VIAL IV SCH ×2 (10:12→17:39)
[2018-08-27] MEDS: METHYLPREDNISOLONE SOD SUCC 40 MG/ML VIAL IV SCH ×2 (10:12→21:32)
[2018-08-27] MEDS: DOXAZOSIN MESYLATE 2 MG TAB PO SCH (10:13)
[2018-08-27 11:21] LABS: BAND NEUTROPHILS % (MANUAL) 1 %; LYMPHOCYTES % (MANUAL) 15 % (19-48); MONOCYTES % (MANUAL) 3 % (3.4-9.0); NEUTROPHILS % (MANUAL) 81 % (40-74); PLATELET ESTIMATE ADEQUATE; PLATELET MORPHOLOGY COMMENT NORMAL; RBC MORPHOLOGY COMMENT NORMAL
--- NOTE | 2018-08-27 14:27 | Progress Note ---
DATE: August 27, 2018 NEPHROLOGY PROGRESS NOTE SUBJECTIVE: Patient is doing well with no other complaints. She is still having no resolve in terms of her pneumonia, which ID has been consulted. OBJECTIVE VITALS: Temperature is 98.2, pulse 70, respiratory rate is 18, blood pressure 130/62, pulse ox 94% on room air. LAB FINDINGS: Show a white count is 11.4, hemoglobin is 7.8, hematocrit is 25.7, platelets of 267. Chemistry: Sodium 143, potassium 4.2, chloride 103, bicarb 22, anion gap of 18, BUN is 77, creatinine is 2.7, glucose is 207, magnesium 2.6, and calcium 11.3. MICROBIOLOGY: Blood cultures, no growth. Urine culture is . Sputum culture is pending. IMAGING STUDIES: None. PHYSICAL EXAMINATION GENERAL: Not in acute distress. Alert and oriented x3. Cooperative on examination. HEENT: Head: Normocephalic and atraumatic. Eyes: Pupils are equal, round, and reactive to light bilaterally. Extraocular movements intact bilaterally. NECK: Supple. Good range of motion. Throat, no evidence of any erythema or exudates in the posterior pharynx. Has poor dentition. PULMONARY: Clear to auscultation bilaterally. No wheezing. No rales. No rhonchi. No crackles appreciated. CARDIOVASCULAR: Positive S1 and S2. No murmurs, rubs, or gallops appreciated. ABDOMEN: Soft, nondistended, nontender to palpation. Bowel sounds present. MUSCULOSKELETAL: Strength is 5/5 throughout. No evidence of any muscle deficit on examination. No weakness appreciated. NEUROLOGICAL: Cranial nerves II through XII grossly intact. No evidence of any neurological deficits on exam. SKIN: Intact. Warm to touch. Good cap refill. PSYCHIATRIC: Normal affect and mood. EXTREMITIES: No edema. Good range of motion throughout. IMPRESSION 1. Chronic kidney disease, stage 4, at baseline. 2. Anemia of chronic kidney disease. 3. Secondary hyperparathyroidism. PLAN: Her creatinine is at baseline and stable. She does not need any further workup. She did have some proteinuria. Continue with iron infusion and Epogen. Continue with same medications. Job#: [id number] ALMA DELIA
--- NOTE | 2018-08-27 15:22 | Consultation ---
DATE OF CONSULTATION: REASON FOR CONSULTATION: Pneumonia, recommendation for antibiotics. Thank you so much for asking me to see this patient. HISTORY OF PRESENT ILLNESS: This patient who is a very pleasant 87-year-old female who has history of hypertension, diabetes mellitus type 2, insomnia, anemia, chronic kidney disease stage 3. The patient comes into the emergency room because she had this cold type of illness, flu-like illness. The patient came to the hospital. She had also some cough, but according to her, it was dry. The patient was admitted and started on antibiotic. She has been seen by renal. Patient is currently lying in bed. She states since she came here she is feeling better. There is no fever, no chills, no nausea, no vomiting, no diarrhea at the present time. ALLERGIES: PENICILLIN AND SULFA. PAST SURGICAL HISTORY: Tonsillectomy and hysterectomy. PAST MEDICAL HISTORY: Hypothyroidism, type 2 diabetes mellitus, and anemia. SOCIAL HISTORY: There is no smoking, drug abuse, or alcohol abuse. FAMILY HISTORY: Diabetes mellitus type 2. REVIEW OF SYSTEMS GENERAL: At the present time, she says she is feeling better. HEENT: Negative. PULMONARY: Negative. CARDIAC: Negative. : Negative. GI: Negative. SKIN: There is no rash. JOINTS: There is no erythema or edema. NEURO: No local finding. PSYCH: There is no depression. Blood cultures have been negative. Her white count is reviewed since admission, it is 9.47, hemoglobin 7.8, her platelets 267. Sodium 143, potassium 4.3, creatinine of 2.73. Her chest x-ray showed right atelectasis versus pneumonia, prominent pulmonary arteries. PHYSICAL EXAMINATION GENERAL: She is currently alert, oriented, does not seem to be in acute distress. VITALS: Stable, currently afebrile. HEENT: She does not appear icteric. NECK: Supple. CHEST: Clear. HEART: S1, S2. No S3, S4, or murmur. ABDOMEN: Soft. Bowel sounds present. No tenderness. EXTREMITIES: No edema. SKIN: Rash. IMPRESSION 1. Pneumonia, on admission, community acquired, seems to be better. Agree with Levaquin, can change to oral 250 mg p.o. q.48 hours, to finish [address] of the chest. 2. Chronic kidney disease. 3. Patient clinically is better. We will follow with you. Job#: [id number] LPA
--- NOTE | 2018-08-27 17:37 | Diagnostic Imaging Report ---
EXAM: CT Chest WITHOUT contrast INDICATION: ^PNA ^[id number] ^1640 ^Y COMPARISON: Chest x-ray dated 08/26/2018 TECHNIQUE: Chest was scanned utilizing a multidetector helical scanner from the lung apex through the level of the adrenal glands without administration of IV contrast. Absence of intravenous contrast decreases sensitivity for detection of lymphadenopathy and vascular pathology. Coronal and sagittal reformations were obtained. Routine protocol was performed. IV CONTRAST: None COMPLICATIONS: None RADIATION DOSE: Total DLP: 423.77 mGy*cm Estimated effective dose: (DLP x 0.014 x size factor) mSv CTDIvol has been reviewed. It is below the limits set by the Radiation Protocol Committee (RPC). FINDINGS: LINES/ TUBES: None. LUNGS AND AIRWAYS: 5 mm left lower lobe nodule (series 3, image 41). Bilateral lower lobe linear atelectasis/scarring, right greater than left. Airways are normal. PLEURA: The pleural spaces are clear. HEART AND MEDIASTINUM: The thyroid gland is normal. No mediastinal or axillary lymphadenopathy. Limited for evaluation of hilar regions without intravenous contrast. Cardiomegaly.. There is no pericardial effusion. Coarse calcification of the mitral valve. Main pulmonary artery measures 3.5 cm, suggestive of pulmonary hypertension. UPPER ABDOMEN: Small hiatal hernia. BONES: Increased skeletal sclerosis. SOFT TISSUES: Unremarkable. IMPRESSION: No evidence of pneumonia. 5 mm left lower lobe lung nodule. Without risk factors, no follow-up is necessary. With risk factors, follow-up with low-dose chest CT in one year is optional. Signed by: Dr. Devon Rush MD on 08/27/2018 5:34 PM
[2018-08-27] MEDS: LATANOPROST(OPTH) 2.5 ML BTL OP SCH (21:32)
[2018-08-27] MEDS: DOCUSATE SODIUM 100 MG CAP PO SCH (21:33)
[2018-08-27] MEDS: MIRTAZAPINE 15 MG TAB PO SCH (21:33)
[2018-08-27] MEDS: CITALOPRAM HYDROBROMIDE 20 MG TAB PO SCH (21:33)
[2018-08-27] MEDS: INSULIN DETEMIR 100 UNIT/ML PEN SQ SCH (21:44)
[2018-08-28] VITALS: BP 165/70
[2018-08-28] MEDS: GUAIFENESIN 600 MG TAB PO SCH ×2 (00:24→05:34)
[2018-08-28] MEDS: ALBUTEROL/IPRATROPIUM 3 ML NEB NEB SCH ×2 (01:12→07:40)
[2018-08-28] MEDS: ACETYLCYSTEINE 200 MG/ML 4ML VIAL INH SCH ×2 (01:12→07:40)
[2018-08-28 04:00] VITALS: BP 164/63
[2018-08-28 05:16] LABS: BASOPHILS % 0.2 % (0.0-1.0); HEMATOCRIT 25.4 % (34.2-44.1); HEMOGLOBIN 7.5 g/dL (12.0-16.0); LYMPHOCYTES # (AUTO) 0.8 (1.0-3.2); LYMPHOCYTES % 7.7 % (18.0-39.1); MEAN CORPUSCULAR HGB CONC 29.5 g/dL (31-35); MEAN CORPUSCULAR VOLUME 84.7 fL (81-99); MONOCYTES # (AUTO) 0.3 (0.2-0.8); MONOCYTES % 3.3 % (4.4-11.3); NEUTROPHILS # (AUTO) 7.9 (2.1-6.9); NEUTROPHILS % 81.5 % (38.7-80.0); PLATELET COUNT 265 x10e3/uL (140-360); RED CELL DISTRIBUTION WIDTH 16.9 % (11.7-14.4)
[2018-08-28] MEDS: LEVOTHYROXINE SODIUM 25 MCG TABLET PO SCH (05:34)
[2018-08-28] MEDS: CLONIDINE HCL 0.3 MG TAB PO SCH (05:34)
[2018-08-28 05:41] LABS: ANION GAP 18.2 mmol/L (8-16); CALCIUM 9.5 mg/dL (8.4-10.2); CREATININE, SERUM 2.96 mg/dL (0.57-1.11); MAGNESIUM 2.7 MG/DL (1.3-2.1); POTASSIUM 4.2 mmol/L (3.5-5.1)
[2018-08-28 07:30] VITALS: BP 142/60
[2018-08-28] MEDS ORDERED: NIFEDIPINE ER30 M1 PO (07:56)
[2018-08-28] MEDS ORDERED: CARDURA2 MG PO (07:56)
[2018-08-28] MEDS ORDERED: LISINOPRIL10 MG PO (07:56)
[2018-08-28] MEDS ORDERED: PREDNISONE10 MG PO (07:59)
[2018-08-28] MEDS ORDERED: LEVAQUIN500 MG PO (07:59)
[2018-08-28 08:46] LABS: LYMPHOCYTES % (MANUAL) 7 % (19-48); MONOCYTES % (MANUAL) 3 % (3.4-9.0); MYELOCYTES % (MANUAL) 3 % (0-0); NEUTROPHILS % (MANUAL) 87 % (40-74); NUCLEATED RED BLOOD CELLS 1
[2018-08-28 08:47] LABS: ANISOCYTOSIS SLIGHT; HYPOCHROMASIA SLIGHT; PLATELET ESTIMATE ADEQUATE; PLATELET MORPHOLOGY COMMENT NORMAL; POLYCHROMASIA FEW; RBC MORPHOLOGY COMMENT ABNORMAL
[2018-08-28] MEDS: LEVOFLOXACIN 500MG/D5W 100ML 100 ML IV SCH (08:56)
[2018-08-28] MEDS ORDERED: NIFEDIPINE CR 30 MG TAB PO SCH (09:00)
[2018-08-28] MEDS: BRIMONIDINE TARTRATE 0.15% OPTH DRPS 10ML BTL OP SCH (09:17)
[2018-08-28] MEDS: FUROSEMIDE INJ 10 MG/ML 2 ML VIAL IV SCH (09:17)
[2018-08-28] MEDS: SITAGLIPTIN 100 MG TAB PO SCH (09:17)
[2018-08-28] MEDS: DOXAZOSIN MESYLATE 2 MG TAB PO SCH (09:17)
[2018-08-28] MEDS: HYDRALAZINE HCL 100 MG TABLET PO SCH (09:17)
[2018-08-28] MEDS: METHYLPREDNISOLONE SOD SUCC 40 MG/ML VIAL IV SCH (09:17)
[2018-08-28] MEDS: CARVEDILOL 12.5 MG TAB PO SCH (09:17)
[2018-08-28] MEDS: SODIUM BICARBONATE 650 MG TAB PO SCH (09:18)
[2018-08-28] MEDS: PANTOPRAZOLE SOD 40 MG TABEC PO SCH (09:18)
[2018-08-28] MEDS: POLYETHYLENE GLYCOL 3350 17 GM PACK PO SCH (09:18)
[2018-08-28] MEDS: LISINOPRIL 10 MG TAB PO SCH (09:19)
[2018-08-28] MEDS: INSULIN LISPRO 100 UNIT/1 ML 3ML VIAL SQ SCH (09:22)
[2018-08-28 09:23] VITALS: BP 142/60
[2018-08-28] MEDS: EPOETIN ALFA 10000 UNIT/ML VIAL SC SCH (09:34)
--- NOTE | 2018-08-28 10:22 | Progress Note ---
DATE: August 28, 2018 NEPHROLOGY PROGRESS NOTE SUBJECTIVE: Patient is doing well today with no other complaints. She is tolerating diet well. OBJECTIVE VITAL SIGNS: Temperature is 97.9, pulse 73, respiratory rate 18, blood pressure 142/60, pulse ox 98% on room air. LAB FINDINGS: White count 9.7, hemoglobin 10.5, hematocrit 25, platelets 265. Chemistry: Sodium 144, potassium 4.2, chloride 108, bicarb 22, anion gap 18, BUN 88, creatinine is 2.96, glucose 251, magnesium 2.7. MICROBIOLOGY: No growth. IMAGING STUDIES: A 5-mm left lower lobe nodule, with outpatient followup needed. No evidence of pneumonia. PHYSICAL EXAMINATION GENERAL: Not in acute distress. Alert and oriented x3. Cooperative on examination. HEENT: Head is normocephalic and atraumatic. Eyes: Pupils are equal and reactive to light bilaterally. Extraocular movements are intact bilaterally. NECK: Supple. Good range of motion. THROAT: No evidence of any erythema or exudates in the posterior pharynx. Has poor dentition. PULMONARY: Clear to auscultation bilaterally. No wheezing. No rales. No rhonchi. No crackles appreciated. CARDIOVASCULAR: Positive S1 and S2. No murmurs, rubs, or gallops appreciated. ABDOMEN: Soft, nondistended, nontender to palpation. Bowel sounds present. MUSCULOSKELETAL: Strength is 5/5 throughout. No evidence of any muscle deficit on examination. No weakness appreciated. NEUROLOGICAL: Cranial nerves II through XII grossly intact. No evidence of any neurological deficits on exam. SKIN: Intact. Warm to touch. Good cap refill. PSYCHIATRIC: Normal affect and mood. EXTREMITIES: No edema. Good range of motion throughout. IMPRESSION 1. Chronic kidney disease, stage 4, at baseline. 2. Elevated blood urea nitrogen secondary to steroid usage as well as underlying chronic kidney disease, most contributory from intravenous Solu-Medrol. 3. Anemia of chronic kidney disease. 4. Secondary hyperparathyroidism. PLAN: At this time, her electrolytes are stable. Her creatinine is at baseline. Her BUN is elevated due to underlying steroid, which is likely the biggest culprit here. Continue with iron infusion as well as Epogen. Continue with the same plan of care with close followup. She needs to follow up with Dr. Harrison once she gets discharged. Job#: [id number] MH
[2018-08-28 13:07] VITALS: BP 157/67
--- NOTE | 2018-08-29 04:18 | Discharge Summary ---
ADMISSION DIAGNOSES 1. Fluid overload. 2. Urinary tract infection. 3. Hypertension. 4. Insomnia. 5. Type 2 diabetes. 6. Hypothyroidism. 7. Anemia. 8. Chronic kidney disease 4. 9. Hypermagnesemia. 10. Bronchopneumonia. 11. Ambulatory dysfunction. 12. Obesity. 13. Constipation. DISCHARGE DIAGNOSES 1. Fluid overload. 2. Urinary tract infection. 3. Hypertension. 4. Insomnia. 5. Type 2 diabetes. 6. Hypothyroidism. 7. Anemia. 8. Chronic kidney disease 4. 9. Hypermagnesemia. 10. Bronchopneumonia. 11. Ambulatory dysfunction. 12. Obesity. 13. Constipation. HISTORY: Patient has a history of hypothyroidism, type 2 diabetes, insomnia, normocytic anemia, and chronic ambulatory dysfunction. SURGICAL HISTORY: Tonsillectomy, hysterectomy. FAMILY HISTORY: Patient's grandmother has diabetes. Patient's father has cancer. Patient's mother had a stroke. SOCIAL HISTORY: Patient denies tobacco, alcohol, and illicit drug use. HOSPITAL COURSE: An 87-year-old female complains of productive cough, lethargy and AMS that began over the weekend. She lives at [facility] and was hard to around per staff. She admits to having subjective chills and wheezing that began prior to admission. On admission, patient had an echo with an EF of 45% to 50%. Lasix was started b.i.d. Chest x-ray was negative but showed mild vascular congestion. Renal ultrasound showed no hydronephrosis. UA came back positive for bacteria and leukocytes. Urine culture came back contaminated. Due to the patient's allergies, she was started on Levaquin for the UTI and a bronchopneumonia. She was also started on nebs, IV steroids, and Mucinex. Patient's renal functions appear at baseline. Per daughter's request, renal was consulted. Patient remained anemic with a hemoglobin in the 7. Patient and family refused transfusion; so, patient was started on iron infusion. Stool for blood was negative. Patient had a CT of the chest which showed no evidence of pneumonia but a 5 mm left lower lobe lung nodule. This nodule was discussed with the family who will take the patient for repeat CAT scan in 1 year. Blood cultures were negative. Sputum culture came back positive for yeast. Per ID, patient was colonized and did not need to be treated. Patient was discharged home to [facility]. She will start on home medicines plus increased dose of lisinopril. She will start on nifedipine, prednisone, Levaquin and doxazosin. Patient and family understand discharge instructions and agree for plan. She will follow up with primary care in 1 to 2 weeks. Dictated by Sanjuanita Funes NP JP ALVARADO MD Job#: [id number]
[2018-08-30 08:00] VITALS: BP 108/55
== END 2018-08-28 12:15 | DRG 193 ==
LOC: ER 06:51 → ERHOLD 11:24 → MED/SURG2 14:27
PROVIDERS: ADMIT Internal Medicine; ATTEND Internal Medicine
DX: J18.0 Bronchopneumonia, unspecified organism (principal); G92 Toxic encephalopathy; N39.0 Urinary tract infection, site not specified; N18.4 Chronic kidney disease, stage 4 (severe); N25.81 Secondary hyperparathyroidism of renal origin; E87.2 Acidosis; E11.22 Type 2 diabetes mellitus with diabetic chronic kidney disease; I12.9 Hypertensive chronic kidney disease with stage 1 through stage 4 chronic kidney disease, or unspecified chronic kidney disease; Z79.4 Long term (current) use of insulin; D64.9 Anemia, unspecified; E03.9 Hypothyroidism, unspecified; E66.9 Obesity, unspecified; Z68.30 Body mass index [BMI] 30.0-30.9, adult; G47.00 Insomnia, unspecified; Z74.09 Other reduced mobility; K59.00 Constipation, unspecified; D63.1 Anemia in chronic kidney disease; N14.1 Nephropathy induced by other drugs, medicaments and biological substances; T38.0X5A Adverse effect of glucocorticoids and synthetic analogues, initial encounter; D50.9 Iron deficiency anemia, unspecified
CPT/HCPCS: 36415; 71045; 71250; 76770; 80048; 80053; 80307; 81001; 81015; 82044; 82306; 82570; 82607; 82728; 82746; 82948; 83036; 83540; 83605; 83735; 83880; 83970; 84100; 84156; 84300; 84443; 84466; 84550; 85025; 86850; 86900; 87040; 87070; 87086; 87205; 93306; 94640; 97139; 99284; J0360; J0696; J1940; J1956; J2916; J2920; J2930; J7040; J7050; Q4081

== ENCOUNTER 2018-10-17 12:48 | Inpatient (IN) | payer MEDICARE, BC ==
[~2018-10-17] VITALS: Ht 152.4 cm; Wt 68.2 kg
[~2018-10-17 12:48] MED LIST changes: +CARDURA2 MG PO; +LEVAQUIN500 MG PO; +NIFEDIPINE ER30 M1 PO; +PREDNISONE10 MG PO
[2018-10-17] MEDS ORDERED: SODIUM CHLORIDE 0.9% 1000ML 1,000 ML IV STA (12:54)
[2018-10-17] MEDS ORDERED: ONDANSETRON HCL INJ 2 MG/ML VIAL IV ONE (13:15)
[2018-10-17] MEDS ORDERED: ACETAMINOPHEN 325 MG TAB PO ONE (13:15)
--- NOTE | 2018-10-17 14:12 | Diagnostic Imaging Report ---
EXAM: XR CHEST 1 VIEW DATE: 10/17/2018 12:54 PM COMPARISON: CT chest 08/27/2018 and chest radiograph 08/26/2018. FINDINGS: Lines and Tubes: None Heart and Mediastinum: Cardiac mediastinal silhouette is unchanged. Prominence of the right hilum is unchanged. Lungs and Pleura: No evidence of lobar consolidation or pulmonary edema. Mild patchy right basilar opacity, likely atelectasis. Bones and Soft Tissues: No acute bony abnormality. IMPRESSION: No acute radiographic abnormality. Unchanged mild prominence of the right hilum which could represent prominent pulmonary arteries or adenopathy. Signed by: Dr. Sung Ramsey MD on 10/17/2018 2:08 PM
[2018-10-17 14:32] LABS: BASOPHILS # (AUTO) 0.1 (0.0-0.1); BASOPHILS % 0.6 % (0.0-1.0); EOSINOPHILS # (AUTO) 0.1 (0.0-0.4); EOSINOPHILS % 1.4 % (0.0-6.0); HEMATOCRIT 29.6 % (34.2-44.1); LYMPHOCYTES # (AUTO) 1.5 (1.0-3.2); LYMPHOCYTES % 18.6 % (18.0-39.1); MEAN CORPUSCULAR HEMOGLOBIN 27.4 pg (28-32); MEAN CORPUSCULAR HGB CONC 30.4 g/dL (31-35); MEAN CORPUSCULAR VOLUME 90.2 fL (81-99); MONOCYTES # (AUTO) 0.9 (0.2-0.8); MONOCYTES % 10.6 % (4.4-11.3); NEUTROPHILS # (AUTO) 5.5 (2.1-6.9); NEUTROPHILS % 68.1 % (38.7-80.0); PLATELET COUNT 265 x10e3/uL (140-360); RED BLOOD COUNT 3.28 x10e6/uL (3.6-5.1); RED CELL DISTRIBUTION WIDTH 18.6 % (11.7-14.4)
[2018-10-17 14:37] LABS: INR 0.99
[2018-10-17 14:38] LABS: PARTIAL THROMBOPLASTIN TIME 34.1 seconds (23.8-35.5)
[2018-10-17 14:48] LABS: ALBUMIN 3.1 g/dL (3.5-5.0); ALBUMIN/GLOBULIN RATIO 0.8 (0.8-2.0); ALKALINE PHOSPHATASE 41 IU/L (40-150); ANION GAP 16.8 mmol/L (8-16); BLOOD UREA NITROGEN 25 mg/dL (7-26); BUN/CREATININE RATIO 10 (6-25); CARBON DIOXIDE 20 mmol/L (22-29); CHLORIDE 112 mmol/L (98-107); CREATINE KINASE 26 IU/L (29-168); CREATININE, SERUM 2.53 mg/dL (0.57-1.11); EST GLOMERULAR FILTRATION RATE 18 ML/MIN (60-); GLUCOSE 160 mg/dL (74-118); LIPASE 101 U/L (8-78); POTASSIUM 3.8 mmol/L (3.5-5.1); SODIUM 145 mmol/L (136-145)
[2018-10-17 14:53] LABS: ALANINE AMINOTRANSFERASE < 6 IU/L (0-55)
--- NOTE | 2018-10-17 15:30 | NUR ---
PT REMINDED ON THE NEED FOR UA, VERBALIZED UNDERSTANDING, DAUGHTER WILL ASSIST PT TO RESTROOM AT THIS TIME
[2018-10-17] MEDS ORDERED: TIMOPTIC5 ML OU (15:42)
[2018-10-17] MEDS ORDERED: PROCRIT20000 UNIT SC (15:42)
[2018-10-17] MEDS ORDERED: CRANBERRY CONC500 MG (15:42)
[2018-10-17] MEDS ORDERED: PROAIR HFA INH8.5 GM PO (15:42)
[2018-10-17] MEDS ORDERED: CITALOPRAM HBR10 MG PO (15:42)
[2018-10-17] MEDS ORDERED: VITAMIN B-121000 MCG PO (15:42)
[2018-10-17] MEDS ORDERED: JANUVIA100 MG PO (15:42)
[2018-10-17] MEDS ORDERED: FEXOFENADINE HC60 MG (15:42)
[2018-10-17] MEDS ORDERED: GEMFIBROZIL600 MG PO (15:42)
[2018-10-17] MEDS ORDERED: FERROUS SULFAT325 MG PO (15:42)
[2018-10-17] MEDS ORDERED: ADVAIR 250-501 EACH PO (15:42)
[2018-10-17] MEDS ORDERED: AMLODIPINE BESYL5 MG PO (15:42)
[2018-10-17] MEDS ORDERED: FUROSEMIDE40 MG PO (15:42)
[2018-10-17] MEDS ORDERED: ALPHAGAN P5 ML OU (15:42)
--- NOTE | 2018-10-17 16:00 | NUR ---
PT UNABLE TO PROVIDE SPECIMEN FOR UA, STRAIGHT CATH DONE, URINE COLLECTED AND SENT TO LAB, PT TOLERATED WELL.
[2018-10-17 16:28] LABS: BILIRUBIN,URINE NEGATIVE (NEGATIVE); CLARITY,URINE CLOUDY (CLEAR); COLOR,URINE YELLOW (YELLOW); KETONES,URINE NEGATIVE (NEGATIVE); LEUKOCYTE ESTERASE ,URINE 2+ (NEGATIVE); NITRITE,URINE NEGATIVE (NEGATIVE); PROTEIN,URINE DIPSTICK 3+ (NEGATIVE); URINE UROBILINOGEN 0.2 mg/dL (0.2 - 1)
[2018-10-17 17:00] LABS: BACTERIA,URINE FEW /HPF; EPITHELIAL CELLS,URINE RARE /LPF; WBC,URINE (MAN) >50 /HPF (0-5)
[2018-10-17] MEDS ORDERED: ONDANSETRON HCL INJ 2 MG/ML VIAL IV PRN (17:15)
[2018-10-17] MEDS ORDERED: CEFTRIAXONE SOD 1 GM VIAL IV SCH (17:15)
[2018-10-17] MEDS ORDERED: CEFTRIAXONE SOD 1 GM VIAL IV ONE (17:15)
[2018-10-17] MEDS ORDERED: SODIUM CHLORIDE FLUSH 10 ML SYR INJ PRN (17:15)
[2018-10-17] MEDS ORDERED: DEXTROSE 50% SYRINGE 50 ML IV PRN (17:15)
--- NOTE | 2018-10-17 17:30 | NUR ---
PT AND DAUGHTER MADE AWARE OF ADMIT ORDERS, AND PENDING ROOM STATUS
[2018-10-17] MEDS: CEFTRIAXONE SOD 1 GM/NS 50 ML 50 ML IV SCH (18:25)
--- NOTE | 2018-10-17 19:26 | NUR ---
WALKING ROUNDS AND REPORT GIVEN TO GIOVANI CASEY SUPERVISOR CAP AND HAT PRODUCTION NURSE
[2018-10-17 21:00] VITALS: BP 134/63
[2018-10-17] MEDS: INSULIN REGULAR, HUMAN 100 UNIT/1 ML 3ML VIAL SQ SCH (23:07)
[2018-10-18] VITALS (8 sets, daily range): BP systolic 141–192; BP diastolic 64–73
--- NOTE | 2018-10-18 05:30 | NUR ---
Marin Gann NP. was notified of high systolic blood pressure. The patient BP for hour 0000 was 166/66 and for the hour of 0400 her blood pressure was 192/72. TECHNOLOGY COORDINATOR states she will work on the patient's medications .
[2018-10-18] MEDS ORDERED: POLYETHYLENE GLYCOL 3350 17 GM PACK PO PRN (05:45)
[2018-10-18] MEDS ORDERED: MELATONIN 3 MG TAB PO PRN (06:30)
[2018-10-18] MEDS ORDERED: ACETAMINOPHEN 325 MG TAB PO PRN (06:30)
[2018-10-18] MEDS: INSULIN REGULAR, HUMAN 100 UNIT/1 ML 3ML VIAL SQ SCH ×4 (07:30→20:01)
[2018-10-18] MEDS: POTASSIUM CHLORIDE 20 MEQ TAB CR PO SCH ×2 (08:34→16:47)
[2018-10-18] MEDS: CARVEDILOL 12.5 MG TAB PO SCH ×2 (08:35→16:47)
[2018-10-18] MEDS: FERROUS SULFATE 325 MG TAB PO SCH (08:35)
[2018-10-18] MEDS: DOCUSATE SODIUM 100 MG CAP PO SCH ×3 (08:35→20:43)
[2018-10-18] MEDS: ASCORBIC ACID 500 MG TAB PO SCH ×2 (08:35→16:47)
[2018-10-18] MEDS: GEMFIBROZIL 600 MG TAB PO SCH (08:35)
[2018-10-18] MEDS: FUROSEMIDE INJ 10 MG/ML 4 ML VIAL IV SCH ×2 (08:35→16:47)
[2018-10-18] MEDS: PANTOPRAZOLE SOD 40 MG TABEC PO SCH ×2 (08:35→16:47)
[2018-10-18] MEDS: LORATADINE 10 MG TAB PO SCH (08:35)
[2018-10-18] MEDS: SITAGLIPTIN 100 MG TAB PO SCH (08:35)
[2018-10-18] MEDS: CITALOPRAM HYDROBROMIDE 20 MG TAB PO SCH (08:35)
[2018-10-18] MEDS ORDERED: AMLODIPINE BESYLATE 5 MG TAB PO SCH (09:00)
[2018-10-18] MEDS ORDERED: LEVOTHYROXINE SODIUM 50 MCG TAB PO SCH (09:00)
--- NOTE | 2018-10-18 11:28 | NUR ---
SOCIAL WORK INITIAL ASSESSMENT Cellophane Worker to bedside to discuss plan of care with patient/family. CM/SW role and care transitions discussed. Anticipated discharge plan discussed along with duration of care. CM/SW discussed patients right to make decisions in care. CM/SW work hours given. Patient lives: AT [facility] Admit/Transfer: [facility]IA [facility] POA/Emergency contact: DAUGHTER IS RAE FOX [phone]- SON IS SHAUNNA [phone] Current/Previous Home Health: [facility] PCP/Follow-up Care: JERONIMO Current/Previous DME: [employer] Other Services: NONE Employment Status: NONE Areas of Concerns: NONE Referral Needs: NONE Education Needs: NONE IMM/CORONEL given and signed (if applicable): CORONEL Goal for discharge: WILL RETURN TO [facility] CM/SW left business card at the bedside with contact information. Name and number was also written on the patients whiteboard. Patient verbalized understanding of discussion. CM will follow-up with ongoing discharge and transition of care needs.
[2018-10-18] MEDS: BRIMONIDINE TARTRATE 0.15% OPTH DRPS 10ML BTL OP SCH ×2 (11:57→16:47)
[2018-10-18] MEDS: TIMOLOL MALEATE(OPTHALMIC) 1 EA BTL OU SCH (11:57)
[2018-10-18] MEDS: CEFTRIAXONE SOD 1 GM/NS 50 ML 50 ML IV SCH (16:47)
--- NOTE | 2018-10-18 19:00 | NUR ---
Received pt in bed watching tv. Family at bedside. No s/s of resp distress. Denies pain at this time. Call light within reach and instructed to call for assistance.
[2018-10-18] MEDS: LATANOPROST(OPTH) 2.5 ML BTL OP SCH (20:43)
--- NOTE | 2018-10-19 02:48 | NUR ---
BLOOD DRAWN TO L HAND. DENIES PAIN. NO BLEEDING OR HEMATOMA. BANDAGE APPLIED.
[2018-10-19 03:13] LABS: BASOPHILS % 0.3 % (0.0-1.0); EOSINOPHILS # (AUTO) 0.3 (0.0-0.4); HEMATOCRIT 24.7 % (34.2-44.1); HEMOGLOBIN 7.3 g/dL (12.0-16.0); LYMPHOCYTES # (AUTO) 1.5 (1.0-3.2); LYMPHOCYTES % 16.6 % (18.0-39.1); MEAN CORPUSCULAR HEMOGLOBIN 26.9 pg (28-32); MEAN CORPUSCULAR HGB CONC 29.6 g/dL (31-35); MEAN CORPUSCULAR VOLUME 91.1 fL (81-99); MONOCYTES # (AUTO) 0.8 (0.2-0.8); MONOCYTES % 8.7 % (4.4-11.3); NEUTROPHILS # (AUTO) 6.5 (2.1-6.9); NEUTROPHILS % 70.6 % (38.7-80.0); PLATELET COUNT 200 x10e3/uL (140-360); RED BLOOD COUNT 2.71 x10e6/uL (3.6-5.1); RED CELL DISTRIBUTION WIDTH 18.4 % (11.7-14.4)
[2018-10-19 03:22] LABS: ANION GAP 15.2 mmol/L (8-16); CALCIUM 8.4 mg/dL (8.4-10.2); CREATININE, SERUM 2.73 mg/dL (0.57-1.11); MAGNESIUM 1.8 MG/DL (1.3-2.1); POTASSIUM 4.2 mmol/L (3.5-5.1)
[2018-10-19 03:44] LABS: FREE T4 (FREE THYROXINE) 0.72 ng/dL (0.9-1.8); THYROID STIMULATING HORMONE 1.912 uIU/mL (0.350-4.940)
[2018-10-19 04:41] VITALS: BP 161/74
[2018-10-19] MEDS: LEVOTHYROXINE SODIUM 50 MCG TAB PO SCH (06:15)
[2018-10-19] MEDS: INSULIN REGULAR, HUMAN 100 UNIT/1 ML 3ML VIAL SQ SCH ×4 (07:30→21:00)
[2018-10-19 08:00] VITALS: BP 203/86
[2018-10-19] MEDS: FUROSEMIDE INJ 10 MG/ML 4 ML VIAL IV SCH ×2 (08:29→16:30)
[2018-10-19] MEDS: BRIMONIDINE TARTRATE 0.15% OPTH DRPS 10ML BTL OP SCH ×3 (08:29→16:30)
[2018-10-19] MEDS: CITALOPRAM HYDROBROMIDE 20 MG TAB PO SCH (08:30)
[2018-10-19] MEDS: POTASSIUM CHLORIDE 20 MEQ TAB CR PO SCH ×2 (08:30→16:31)
[2018-10-19] MEDS: LORATADINE 10 MG TAB PO SCH (08:30)
[2018-10-19] MEDS: TIMOLOL MALEATE(OPTHALMIC) 1 EA BTL OU SCH (08:30)
[2018-10-19] MEDS: SITAGLIPTIN 100 MG TAB PO SCH (08:30)
[2018-10-19] MEDS: DOCUSATE SODIUM 100 MG CAP PO SCH ×3 (08:30→21:00)
[2018-10-19] MEDS: FERROUS SULFATE 325 MG TAB PO SCH (08:30)
[2018-10-19] MEDS: CARVEDILOL 12.5 MG TAB PO SCH ×2 (08:30→16:31)
[2018-10-19] MEDS: GEMFIBROZIL 600 MG TAB PO SCH (08:30)
[2018-10-19] MEDS: PANTOPRAZOLE SOD 40 MG TABEC PO SCH ×2 (08:31→16:30)
[2018-10-19] MEDS: ASCORBIC ACID 500 MG TAB PO SCH ×2 (08:31→16:30)
[2018-10-19] MEDS ORDERED: AMLODIPINE BESYLATE 10 MG TAB PO SCH (09:00)
[2018-10-19 12:00] VITALS: BP 180/77
[2018-10-19 16:29] VITALS: BP 169/72
[2018-10-19] MEDS: CEFTRIAXONE SOD 1 GM/NS 50 ML 50 ML IV SCH (16:30)
[2018-10-19 18:30] VITALS: BP 169/72
[2018-10-19 19:30] VITALS: BP 183/73
[2018-10-19] MEDS: ACETAMINOPHEN 325 MG TAB PO PRN (21:00)
[2018-10-19] MEDS: LATANOPROST(OPTH) 2.5 ML BTL OP SCH (23:30)
[2018-10-20] VITALS (7 sets, daily range): BP systolic 144–182; BP diastolic 64–74
--- NOTE | 2018-10-20 02:03 | NUR ---
WAS CALLED INTO PATIENTS ROOM CONCERNING PATIENTS SWEATING, INFORMED TECHS THAT PATIENT HAD A LOW GRADE TEMP AND THAT SHES'S BREAKING HER TEMP. PATIENT CONTINUE RESTING, WILL CONTINUE TO MONITOR.
[2018-10-20 05:09] LABS: BASOPHILS % 0.2 % (0.0-1.0); EOSINOPHILS # (AUTO) 0.1 (0.0-0.4); EOSINOPHILS % 0.8 % (0.0-6.0); HEMATOCRIT 26.4 % (34.2-44.1); LYMPHOCYTES # (AUTO) 1.2 (1.0-3.2); LYMPHOCYTES % 14.4 % (18.0-39.1); MEAN CORPUSCULAR HEMOGLOBIN 27.1 pg (28-32); MEAN CORPUSCULAR HGB CONC 29.9 g/dL (31-35); MEAN CORPUSCULAR VOLUME 90.7 fL (81-99); MONOCYTES # (AUTO) 0.9 (0.2-0.8); NEUTROPHILS # (AUTO) 6.2 (2.1-6.9); PLATELET COUNT 217 x10e3/uL (140-360); RED BLOOD COUNT 2.91 x10e6/uL (3.6-5.1)
[2018-10-20 05:15] LABS: HEMOGLOBIN 7.9 g/dL (12.0-16.0)
[2018-10-20 05:42] LABS: ANION GAP 17.2 mmol/L (8-16); CALCIUM 9.1 mg/dL (8.4-10.2); CREATININE, SERUM 2.5 mg/dL (0.57-1.11); POTASSIUM 4.2 mmol/L (3.5-5.1)
[2018-10-20] MEDS: LEVOTHYROXINE SODIUM 50 MCG TAB PO SCH (06:30)
--- NOTE | 2018-10-20 07:00 | NUR ---
rounded with the night nurse, patient aware of change. Patient in no distress, call perla within reach, bed in lowest position.
[2018-10-20] MEDS: INSULIN REGULAR, HUMAN 100 UNIT/1 ML 3ML VIAL SQ SCH ×4 (07:30→21:01)
[2018-10-20] MEDS ORDERED: NIFEDIPINE CR 30 MG TAB PO SCH (09:00)
[2018-10-20] MEDS: ASCORBIC ACID 500 MG TAB PO SCH ×2 (10:20→16:50)
[2018-10-20] MEDS: GEMFIBROZIL 600 MG TAB PO SCH (10:20)
[2018-10-20] MEDS: TIMOLOL MALEATE(OPTHALMIC) 1 EA BTL OU SCH (10:20)
[2018-10-20] MEDS: FERROUS SULFATE 325 MG TAB PO SCH (10:20)
[2018-10-20] MEDS: PANTOPRAZOLE SOD 40 MG TABEC PO SCH ×2 (10:20→16:50)
[2018-10-20] MEDS: POTASSIUM CHLORIDE 20 MEQ TAB CR PO SCH ×2 (10:20→16:50)
[2018-10-20] MEDS: DOCUSATE SODIUM 100 MG CAP PO SCH ×2 (10:20→16:50)
[2018-10-20] MEDS: LORATADINE 10 MG TAB PO SCH (10:20)
[2018-10-20] MEDS: CARVEDILOL 12.5 MG TAB PO SCH ×2 (10:20→16:50)
[2018-10-20] MEDS: CITALOPRAM HYDROBROMIDE 20 MG TAB PO SCH (10:20)
[2018-10-20] MEDS: SITAGLIPTIN 100 MG TAB PO SCH (12:15)
[2018-10-20] MEDS: FUROSEMIDE INJ 10 MG/ML 4 ML VIAL IV SCH ×2 (14:25→21:01)
[2018-10-20] MEDS: CEFTRIAXONE SOD 1 GM/NS 50 ML 50 ML IV SCH (16:50)
[2018-10-20] MEDS: BRIMONIDINE TARTRATE 0.15% OPTH DRPS 10ML BTL OP SCH (16:50)
[2018-10-20] MEDS: ACETAMINOPHEN 325 MG TAB PO PRN (18:10)
[2018-10-20] MEDS: VANCOMYCIN 1GM/NS 250 ML 250 ML IV SCH (18:20)
--- NOTE | 2018-10-20 18:56 | NUR ---
report given to night nurse, patient aware of shift change. Patient in no distress, call perla within reach.
[2018-10-20] MEDS ORDERED: NITROFURANTOIN MACROCRYSTALS 100 MG CAP PO SCH (21:00)
[2018-10-20] MEDS: LATANOPROST(OPTH) 2.5 ML BTL OP SCH (21:01)
[2018-10-21] VITALS (7 sets, daily range): BP systolic 142–170; BP diastolic 62–71
[2018-10-21 03:37] LABS: BASOPHILS % 0.4 % (0.0-1.0); EOSINOPHILS # (AUTO) 0.2 (0.0-0.4); EOSINOPHILS % 2.7 % (0.0-6.0); HEMATOCRIT 24.2 % (34.2-44.1); HEMOGLOBIN 7.3 g/dL (12.0-16.0); LYMPHOCYTES # (AUTO) 1.6 (1.0-3.2); LYMPHOCYTES % 22.9 % (18.0-39.1); MEAN CORPUSCULAR HGB CONC 30.2 g/dL (31-35); MEAN CORPUSCULAR VOLUME 89.6 fL (81-99); MONOCYTES # (AUTO) 0.8 (0.2-0.8); NEUTROPHILS # (AUTO) 4.2 (2.1-6.9); NEUTROPHILS % 61.4 % (38.7-80.0); PLATELET COUNT 232 x10e3/uL (140-360); RED CELL DISTRIBUTION WIDTH 17.7 % (11.7-14.4)
[2018-10-21 03:44] LABS: CREATININE, SERUM 2.46 mg/dL (0.57-1.11)
[2018-10-21] MEDS: LEVOTHYROXINE SODIUM 50 MCG TAB PO SCH (05:08)
--- NOTE | 2018-10-21 05:18 | NUR ---
patient has declined to be checked to see if she is wet and needs a changing. Will continue to monitor patient.
[2018-10-21] MEDS: ACETAMINOPHEN 325 MG TAB PO PRN ×2 (07:10→14:35)
[2018-10-21] MEDS: INSULIN REGULAR, HUMAN 100 UNIT/1 ML 3ML VIAL SQ SCH ×4 (07:30→21:00)
[2018-10-21] MEDS: FERROUS SULFATE 325 MG TAB PO SCH (09:00)
[2018-10-21] MEDS: SITAGLIPTIN 100 MG TAB PO SCH (09:00)
[2018-10-21] MEDS: POTASSIUM CHLORIDE 20 MEQ TAB CR PO SCH ×2 (09:00→17:00)
[2018-10-21] MEDS: FUROSEMIDE INJ 10 MG/ML 4 ML VIAL IV SCH ×2 (09:00→17:00)
[2018-10-21] MEDS: ASCORBIC ACID 500 MG TAB PO SCH ×2 (09:00→17:00)
[2018-10-21] MEDS: CARVEDILOL 12.5 MG TAB PO SCH ×2 (09:00→17:00)
[2018-10-21] MEDS: GEMFIBROZIL 600 MG TAB PO SCH (09:00)
[2018-10-21] MEDS: TIMOLOL MALEATE(OPTHALMIC) 1 EA BTL OU SCH (09:00)
[2018-10-21] MEDS: CITALOPRAM HYDROBROMIDE 20 MG TAB PO SCH (09:00)
[2018-10-21] MEDS: LORATADINE 10 MG TAB PO SCH (09:00)
[2018-10-21] MEDS: DOCUSATE SODIUM 100 MG CAP PO SCH ×2 (09:00→17:00)
[2018-10-21] MEDS: BRIMONIDINE TARTRATE 0.15% OPTH DRPS 10ML BTL OP SCH ×2 (09:00→17:00)
[2018-10-21] MEDS: PANTOPRAZOLE SOD 40 MG TABEC PO SCH ×2 (09:00→17:00)
[2018-10-21] MEDS ORDERED: NIFEDIPINE CR 30 MG TAB PO SCH (09:00)
--- NOTE | 2018-10-21 10:48 | NUR ---
MICHAEL (F.B) spoke with patient and daughter at bedside regarding discharge plan for HH for IV Vanco. Daughter states patient's Assisted Living has an agency on ground called [facility]. Patient receives PT and would need to receive medication services with them as well. Unit CM to notify [facility] regarding aftercare needs. MICHAEL also provided family with list of HH agency if needed. IMM signed and placed in chart. Copy given to patient.
--- NOTE | 2018-10-21 12:20 | NUR ---
Visit made by the Spiritual Care Department Pastoral Visitor, Daisy Chery. PV provided pastoral presence, prayer, hospitality, and supportive listening. Pastoral Visitor informed pt/family of the scope of Intellectual Property Manager Services and availability. KENNETH BELLE Esthetician Makeup Artist Spiritual Care Department O: [phone] Pager: [phone] ([phone] number calling from)
--- NOTE | 2018-10-21 12:59 | NUR ---
Nutrition Screen Note RD Recommendation for Physician: Continue diet as ordered Plan of Care: RD following, monitoring for adequacy and tolerance Nutrition reason for involvement: Nutrition Risk Trigger Primary Diagnose(s): heart failure, fever, UTI Ht:60 in Wt:145.38lbs BMI:28.4 kg/m2 IBW:100lbs RD Assessment:(10/21/2018) Initial encounter with patient. Pt reporting occasional nausea, but denies diarrhea. Pt denies any difficulty chewing or swallowing. 10-15 pound wt loss reported by daughter that has occurred gradually over the past 3 years. Pt eats well overall, but states her appetite is "off and on" ate well at breakfast and lunch. Pt can feed herself. Current Diet: 1800 ADA Malnutrition Evaluation (10/21/2018) The patient does not meet criteria for a specified degree of malnutrition at this time. Will re-evaluate at follow-up as appropriate. Diet Education Needs Assessment: Diet education not indicated. Diet Adequacy: Meeting calorie needs, Meeting protein needs, Meeting fluid needs Tolerance: Tolerating PO Nutrition Care Level: shoaib Perdomo RD, [facility]
--- NOTE | 2018-10-21 14:57 | NUR ---
report given to nurse on med surg 3, patient stable and aware of room change. Patient in alert and oriented and in no distress.
--- NOTE | 2018-10-21 15:21 | NUR ---
RECD PT FROM RM 186 VIA BED NO C/O PAIN,
[2018-10-21] MEDS ORDERED: SODIUM CHLORIDE 0.9% 250ML 250 ML ONE (17:58)
[2018-10-21] MEDS: VANCOMYCIN 1GM/NS 250 ML 250 ML IV SCH (18:00)
--- NOTE | 2018-10-21 18:44 | NUR ---
PT UP IN BED ,DENIES PAIN,IV RESTARTED TO LT FA 22 G
[2018-10-21] MEDS: LATANOPROST(OPTH) 2.5 ML BTL OP SCH (21:00)
--- NOTE | 2018-10-21 22:57 | NUR ---
Patient laying in bed with HOB slightly elevated. AAO x 4. Patient reports of pain 0/10. No SOB noted. No acute distress noted. Bed at low position and locked. Call light within reach, reminded patient to utilize when assistance is needed, patient voiced understanding. Patient in stable condition and will continue to monitor.
[2018-10-22] VITALS: BP 164/73
[2018-10-22 04:00] VITALS: BP 180/77
[2018-10-22 05:38] LABS: BASOPHILS % 0.6 % (0.0-1.0); EOSINOPHILS # (AUTO) 0.3 (0.0-0.4); EOSINOPHILS % 3.9 % (0.0-6.0); HEMATOCRIT 26.6 % (34.2-44.1); LYMPHOCYTES # (AUTO) 1.1 (1.0-3.2); LYMPHOCYTES % 15.3 % (18.0-39.1); MEAN CORPUSCULAR HEMOGLOBIN 26.9 pg (28-32); MEAN CORPUSCULAR HGB CONC 30.1 g/dL (31-35); MEAN CORPUSCULAR VOLUME 89.6 fL (81-99); MONOCYTES # (AUTO) 0.8 (0.2-0.8); MONOCYTES % 10.3 % (4.4-11.3); NEUTROPHILS % 68.9 % (38.7-80.0); PLATELET COUNT 267 x10e3/uL (140-360); RED BLOOD COUNT 2.97 x10e6/uL (3.6-5.1); RED CELL DISTRIBUTION WIDTH 17.1 % (11.7-14.4)
[2018-10-22 06:14] LABS: ANION GAP 17.3 mmol/L (8-16); CALCIUM 9.4 mg/dL (8.4-10.2); CREATININE, SERUM 2.53 mg/dL (0.57-1.11); POTASSIUM 4.3 mmol/L (3.5-5.1)
[2018-10-22] MEDS: LEVOTHYROXINE SODIUM 50 MCG TAB PO SCH (06:35)
[2018-10-22] MEDS: INSULIN REGULAR, HUMAN 100 UNIT/1 ML 3ML VIAL SQ SCH ×4 (07:30→21:00)
--- NOTE | 2018-10-22 07:35 | NUR ---
PT ASSISTED UP TO CHAIR MAX ASSIST, NO DISTRESS NOTED,DENIES PAIN
[2018-10-22 07:54] VITALS: BP 180/70
[2018-10-22] MEDS ORDERED: NIFEDIPINE CR 30 MG TAB PO SCH (09:00)
[2018-10-22] MEDS: POTASSIUM CHLORIDE 20 MEQ TAB CR PO SCH ×2 (09:00→17:10)
[2018-10-22] MEDS: FUROSEMIDE INJ 10 MG/ML 4 ML VIAL IV SCH ×2 (09:00→17:09)
[2018-10-22] MEDS: GEMFIBROZIL 600 MG TAB PO SCH (09:00)
[2018-10-22] MEDS: SITAGLIPTIN 100 MG TAB PO SCH (09:00)
[2018-10-22] MEDS: TIMOLOL MALEATE(OPTHALMIC) 1 EA BTL OU SCH (09:00)
[2018-10-22] MEDS: CARVEDILOL 12.5 MG TAB PO SCH ×2 (09:00→17:10)
[2018-10-22] MEDS: BRIMONIDINE TARTRATE 0.15% OPTH DRPS 10ML BTL OP SCH ×2 (09:00→17:09)
[2018-10-22] MEDS: ASCORBIC ACID 500 MG TAB PO SCH ×2 (09:00→17:10)
[2018-10-22] MEDS: PANTOPRAZOLE SOD 40 MG TABEC PO SCH ×2 (09:00→17:10)
[2018-10-22] MEDS: CITALOPRAM HYDROBROMIDE 20 MG TAB PO SCH (09:00)
[2018-10-22] MEDS: FERROUS SULFATE 325 MG TAB PO SCH (09:00)
[2018-10-22] MEDS: LORATADINE 10 MG TAB PO SCH (09:00)
[2018-10-22] MEDS: DOCUSATE SODIUM 100 MG CAP PO SCH ×2 (09:00→17:10)
--- NOTE | 2018-10-22 11:30 | NUR ---
PT UP TO CHAIR NO DISTRESS NOTED
[2018-10-22 11:32] VITALS: BP 152/65
[2018-10-22 15:45] VITALS: BP 129/61
--- NOTE | 2018-10-22 17:13 | NUR ---
PT DENIES PAIN ,NO DISTRESS NOTED.
[2018-10-22] MEDS: VANCOMYCIN 1GM/NS 250 ML 250 ML IV SCH (17:59)
[2018-10-22 20:00] VITALS: BP 168/71
--- NOTE | 2018-10-22 20:20 | NUR ---
RECEIVED PT IN BED AOX3 .RESPIRATIONS ARE EVEN AND UNLABORED .DENIES PAIN CALL LIGHT WITH IN REACH CONTINUE TO MONITOR
[2018-10-22] MEDS: LATANOPROST(OPTH) 2.5 ML BTL OP SCH (21:33)
[2018-10-23] VITALS (8 sets, daily range): BP systolic 150–195; BP diastolic 63–74
[2018-10-23] MEDS: ACETAMINOPHEN 325 MG TAB PO PRN (04:53)
[2018-10-23 05:50] LABS: BASOPHILS # (AUTO) 0.1 (0.0-0.1); BASOPHILS % 0.8 % (0.0-1.0); EOSINOPHILS # (AUTO) 0.2 (0.0-0.4); EOSINOPHILS % 3.6 % (0.0-6.0); HEMATOCRIT 25.4 % (34.2-44.1); HEMOGLOBIN 7.6 g/dL (12.0-16.0); LYMPHOCYTES # (AUTO) 1.3 (1.0-3.2); LYMPHOCYTES % 18.9 % (18.0-39.1); MEAN CORPUSCULAR HGB CONC 29.9 g/dL (31-35); MEAN CORPUSCULAR VOLUME 90.4 fL (81-99); MONOCYTES # (AUTO) 0.7 (0.2-0.8); MONOCYTES % 9.8 % (4.4-11.3); NEUTROPHILS # (AUTO) 4.4 (2.1-6.9); NEUTROPHILS % 66.1 % (38.7-80.0); PLATELET COUNT 336 x10e3/uL (140-360); RED BLOOD COUNT 2.81 x10e6/uL (3.6-5.1); RED CELL DISTRIBUTION WIDTH 16.4 % (11.7-14.4)
[2018-10-23] MEDS ORDERED: ASCORBIC ACID500 MG PO (06:01)
[2018-10-23 06:15] LABS: ANION GAP 17.5 mmol/L (8-16); CALCIUM 9.6 mg/dL (8.4-10.2); CREATININE, SERUM 2.46 mg/dL (0.57-1.11); MAGNESIUM 1.8 MG/DL (1.3-2.1); POTASSIUM 4.5 mmol/L (3.5-5.1)
[2018-10-23] MEDS: LEVOTHYROXINE SODIUM 50 MCG TAB PO SCH (06:20)
--- NOTE | 2018-10-23 06:22 | NUR ---
B/P HIGH NOTIFIED METAL RIVETING MACHINE OPERATOR SARAHI .SHE SAID SHE CHANGED THE MEDICATION.DENIES PAIN .CALL LIGHT WITH IN REACH
[2018-10-23] MEDS: INSULIN REGULAR, HUMAN 100 UNIT/1 ML 3ML VIAL SQ SCH ×4 (07:30→21:00)
--- NOTE | 2018-10-23 07:31 | NUR ---
REPORT GIVEN TO THE ON COMING NURSE
--- NOTE | 2018-10-23 07:31 | NUR ---
REPORT GIVEN TO THE ON COMING NURSE
--- NOTE | 2018-10-23 07:33 | NUR ---
PATIENT IN BED RESTING WITH NO S/S OF PAIN OR DISCOMFORT. BED IN LOWER POSITION, CALL LIGHT AT REACH. FAMILY MEMBER AT BED SIDE.
[2018-10-23] MEDS ORDERED: DOXAZOSIN MESYLATE 2 MG TAB PO SCH (09:00)
[2018-10-23] MEDS: BRIMONIDINE TARTRATE 0.15% OPTH DRPS 10ML BTL OP SCH ×2 (09:37→18:11)
[2018-10-23] MEDS: CITALOPRAM HYDROBROMIDE 20 MG TAB PO SCH (09:37)
[2018-10-23] MEDS: LORATADINE 10 MG TAB PO SCH (09:37)
[2018-10-23] MEDS: TIMOLOL MALEATE(OPTHALMIC) 1 EA BTL OU SCH (09:37)
[2018-10-23] MEDS: FUROSEMIDE INJ 10 MG/ML 4 ML VIAL IV SCH ×2 (09:37→17:54)
[2018-10-23] MEDS: DOCUSATE SODIUM 100 MG CAP PO SCH ×2 (09:37→17:54)
[2018-10-23] MEDS: SITAGLIPTIN 100 MG TAB PO SCH (09:38)
[2018-10-23] MEDS: FERROUS SULFATE 325 MG TAB PO SCH (09:38)
[2018-10-23] MEDS: CARVEDILOL 12.5 MG TAB PO SCH ×2 (09:38→17:56)
[2018-10-23] MEDS: PANTOPRAZOLE SOD 40 MG TABEC PO SCH ×2 (09:38→17:53)
[2018-10-23] MEDS: POTASSIUM CHLORIDE 20 MEQ TAB CR PO SCH ×2 (09:38→17:53)
[2018-10-23] MEDS: ASCORBIC ACID 500 MG TAB PO SCH ×2 (09:38→17:53)
[2018-10-23] MEDS: GEMFIBROZIL 600 MG TAB PO SCH (09:38)
--- NOTE | 2018-10-23 10:41 | NUR ---
SHAWANDA SPOKE WITH SARAHI ECHAVARRIA NP FOR DR ALVARADO RE IV ABX DC DATE FOR IV ABX IS THIS 10/26 PT HAS MCR PRIMARY WHICH DOES NOT PAY FOR IV ABX CAN CHECK WITH [facility] TO SEE IF THEY WILL COVER IV ABX AND WHAT THE OUT OF POCKET IS FOR THE PT PT WILL ALSO NEED A PICC LINE FOR 2 [address] SARAHI SPOKE WITH DR ALVARADO WHO RECOMMENDS LEAVING PT IN THIS HOSPITAL UNTIL COURSE OF IV ABX COMPLETE PT AND PT'S DTR RAE WEBSTER PICC LINE CANCELLED PLAN IS DC BACK TO [facility] ON THURSDAY 10/26 AFTER IV ABX COMPLETE
--- NOTE | 2018-10-23 11:50 | NUR ---
PATIENT EXERCISING IN ROOM WITH PHYSICAL THERAPY. WILL CONTINUE TO MONITOR.
[2018-10-23] MEDS: CLONIDINE HCL 0.3 MG TAB PO SCH ×2 (14:26→22:30)
--- NOTE | 2018-10-23 15:38 | NUR ---
PATIENT'S IV LEAKING, REMOVED WITH TIP INTACT. NEW IV 20 GAUGE INSERTED TO RIGHT AC, PATIENT TOLERATED PROCEDURE WELL.
[2018-10-23] MEDS: VANCOMYCIN 1GM/NS 250 ML 250 ML IV SCH (18:00)
--- NOTE | 2018-10-23 18:10 | NUR ---
SPOKE WITH MD REGARDING ABNORMAL VANC TROUGH, NEW ORDERS RECEIVED.
[2018-10-23] MEDS: SODIUM CHLORIDE 0.9% 1000ML 1,000 ML IV SCH (18:40)
--- NOTE | 2018-10-23 19:47 | NUR ---
RECEIVED PT IN BED AND NO ACUTE DISTRESS NOTED .CALL LIGHT WITH IN REACH.REDNESS TO THE SACRUM .CONTINUE TO MONITOR.
[2018-10-23] MEDS: LATANOPROST(OPTH) 2.5 ML BTL OP SCH (21:00)
[2018-10-24] VITALS (9 sets, daily range): BP systolic 133–181; BP diastolic 63–79
[2018-10-24 03:39] LABS: BASOPHILS % 0.7 % (0.0-1.0); EOSINOPHILS # (AUTO) 0.2 (0.0-0.4); EOSINOPHILS % 3.3 % (0.0-6.0); HEMATOCRIT 23.8 % (34.2-44.1); HEMOGLOBIN 7.3 g/dL (12.0-16.0); LYMPHOCYTES # (AUTO) 1.7 (1.0-3.2); LYMPHOCYTES % 29.2 % (18.0-39.1); MEAN CORPUSCULAR HGB CONC 30.7 g/dL (31-35); MEAN CORPUSCULAR VOLUME 91.2 fL (81-99); MONOCYTES # (AUTO) 0.6 (0.2-0.8); MONOCYTES % 10.9 % (4.4-11.3); NEUTROPHILS # (AUTO) 3.1 (2.1-6.9); PLATELET COUNT 280 x10e3/uL (140-360); RED BLOOD COUNT 2.61 x10e6/uL (3.6-5.1); RED CELL DISTRIBUTION WIDTH 16.7 % (11.7-14.4)
[2018-10-24 03:55] LABS: ANION GAP 18.5 mmol/L (8-16); CALCIUM 9.1 mg/dL (8.4-10.2); CREATININE, SERUM 3.19 mg/dL (0.57-1.11); POTASSIUM 4.5 mmol/L (3.5-5.1)
[2018-10-24] MEDS: CLONIDINE HCL 0.3 MG TAB PO SCH ×3 (05:57→22:00)
[2018-10-24] MEDS: LEVOTHYROXINE SODIUM 50 MCG TAB PO SCH (05:57)
--- NOTE | 2018-10-24 06:22 | NUR ---
IV SITE SWOLLEN .INSERTED NEW IV 22 G RT FOREARM .CALL LIGHT WITH IN REACH .CONTINUE TO MONITOR
--- NOTE | 2018-10-24 07:08 | NUR ---
REPORT GIVEN TO THE ONCOMING NURSE.
--- NOTE | 2018-10-24 07:24 | NUR ---
PATIENT IN BED RESTING WITH NO RESPIRATORY DISTRESS. DENIED PAIN AT THIS TIME. REQUESTED AND RECEIVED A CUP OF COFFEE. BED IN LOWER POSITION, CALL LIGHT AT REACH.
[2018-10-24] MEDS: INSULIN REGULAR, HUMAN 100 UNIT/1 ML 3ML VIAL SQ SCH ×4 (07:30→21:00)
[2018-10-24] MEDS: BRIMONIDINE TARTRATE 0.15% OPTH DRPS 10ML BTL OP SCH ×2 (09:23→18:57)
[2018-10-24] MEDS: FUROSEMIDE INJ 10 MG/ML 4 ML VIAL IV SCH ×2 (09:23→17:35)
[2018-10-24] MEDS: FERROUS SULFATE 325 MG TAB PO SCH (09:24)
[2018-10-24] MEDS: TIMOLOL MALEATE(OPTHALMIC) 1 EA BTL OU SCH (09:24)
[2018-10-24] MEDS: PANTOPRAZOLE SOD 40 MG TABEC PO SCH ×2 (09:24→17:36)
[2018-10-24] MEDS: CITALOPRAM HYDROBROMIDE 20 MG TAB PO SCH (09:24)
[2018-10-24] MEDS: GEMFIBROZIL 600 MG TAB PO SCH (09:24)
[2018-10-24] MEDS: POTASSIUM CHLORIDE 20 MEQ TAB CR PO SCH ×2 (09:24→17:36)
[2018-10-24] MEDS: LORATADINE 10 MG TAB PO SCH (09:24)
[2018-10-24] MEDS: ASCORBIC ACID 500 MG TAB PO SCH ×2 (09:24→17:36)
[2018-10-24] MEDS: CARVEDILOL 12.5 MG TAB PO SCH ×2 (09:24→17:36)
[2018-10-24] MEDS: SITAGLIPTIN 100 MG TAB PO SCH (09:24)
[2018-10-24] MEDS: DOCUSATE SODIUM 100 MG CAP PO SCH ×2 (09:24→17:36)
--- NOTE | 2018-10-24 12:30 | NUR ---
PATIENT OUT OF BED TO CHAIR EATING LUNCH, NO SWALLOWING DIFFICULTY OBSERVED. CALL LIGHT AT REACH.
--- NOTE | 2018-10-24 16:23 | NUR ---
PATIENT EXERCISED IN ROOM WITH PHYSICAL THERAPY, ASSISTED BACK TO BED. CALL LIGHT AT REACH.
[2018-10-24] MEDS: SODIUM CHLORIDE 0.9% 1000ML 1,000 ML IV SCH (17:35)
[2018-10-24] MEDS: VANCOMYCIN 1GM/NS 250 ML 250 ML IV SCH (18:00)
--- NOTE | 2018-10-24 18:33 | NUR ---
SPOKE WITH MD REGARDING ABNORMAL VANC TROUGH, NEW ORDER RECEIVED.
--- NOTE | 2018-10-24 19:55 | NUR ---
RECEIVED PT IN BED .DENIES PAIN .NS AT 100 ML INFUSING THROUGH THE FORARM .FAMILY AT THE BEDSIDE .CALL LIGHT WITH IN REACH CONTINUE TO MONITOR .
[2018-10-24] MEDS: LATANOPROST(OPTH) 2.5 ML BTL OP SCH (21:00)
[2018-10-25] VITALS (9 sets, daily range): BP systolic 93–219; BP diastolic 48–81
--- NOTE | 2018-10-25 00:18 | NUR ---
B/P WAS HIGH 219/[address] EVERTON BECERRA .ORDERED TO GIVE HYDRALAZINE 10 MG Q3HRS
[2018-10-25] MEDS: HYDRALAZINE HCL 20 MG/ML VIAL IV PRN (02:10)
[2018-10-25 04:19] LABS: BASOPHILS % 0.6 % (0.0-1.0); EOSINOPHILS # (AUTO) 0.3 (0.0-0.4); EOSINOPHILS % 4.3 % (0.0-6.0); HEMATOCRIT 23.6 % (34.2-44.1); HEMOGLOBIN 7.2 g/dL (12.0-16.0); LYMPHOCYTES # (AUTO) 1.4 (1.0-3.2); LYMPHOCYTES % 21.7 % (18.0-39.1); MEAN CORPUSCULAR HEMOGLOBIN 27.6 pg (28-32); MEAN CORPUSCULAR HGB CONC 30.5 g/dL (31-35); MEAN CORPUSCULAR VOLUME 90.4 fL (81-99); MONOCYTES # (AUTO) 0.6 (0.2-0.8); MONOCYTES % 9.2 % (4.4-11.3); NEUTROPHILS # (AUTO) 4.2 (2.1-6.9); NEUTROPHILS % 63.3 % (38.7-80.0); PLATELET COUNT 278 x10e3/uL (140-360); RED BLOOD COUNT 2.61 x10e6/uL (3.6-5.1); RED CELL DISTRIBUTION WIDTH 16.1 % (11.7-14.4)
[2018-10-25 04:36] LABS: ANION GAP 15.2 mmol/L (8-16); CALCIUM 9.2 mg/dL (8.4-10.2); CREATININE, SERUM 2.71 mg/dL (0.57-1.11); MAGNESIUM 1.8 MG/DL (1.3-2.1); POTASSIUM 4.2 mmol/L (3.5-5.1)
[2018-10-25] MEDS ORDERED: BISACODYL 5 MG TAB EC PO ONE (05:45)
[2018-10-25] MEDS: LEVOTHYROXINE SODIUM 50 MCG TAB PO SCH (05:46)
[2018-10-25] MEDS: CLONIDINE HCL 0.3 MG TAB PO SCH ×3 (06:00→20:05)
--- NOTE | 2018-10-25 06:14 | NUR ---
PT RESTING AND DENIES PAIN .SARAHI RRT HAVE SEEN THE PT ORDERED DUCOLAX FOR CONSTIPATION.CALL LIGHT WITH IN REACH.CONTINUE TO MONITOR
[2018-10-25] MEDS: INSULIN REGULAR, HUMAN 100 UNIT/1 ML 3ML VIAL SQ SCH ×4 (07:30→20:03)
--- NOTE | 2018-10-25 08:05 | NUR ---
Assisted patient sit up in chair to eat breakfast, denies any pain, no distress noted, daughter at bed side.
[2018-10-25] MEDS: SITAGLIPTIN 100 MG TAB PO SCH (08:36)
[2018-10-25] MEDS: CARVEDILOL 12.5 MG TAB PO SCH ×2 (08:36→16:51)
[2018-10-25] MEDS: POTASSIUM CHLORIDE 20 MEQ TAB CR PO SCH ×2 (08:36→16:52)
[2018-10-25] MEDS: CITALOPRAM HYDROBROMIDE 20 MG TAB PO SCH (08:36)
[2018-10-25] MEDS: ASCORBIC ACID 500 MG TAB PO SCH ×2 (08:36→16:52)
[2018-10-25] MEDS: FUROSEMIDE 40 MG TAB PO SCH (08:36)
[2018-10-25] MEDS: GEMFIBROZIL 600 MG TAB PO SCH (08:36)
[2018-10-25] MEDS: LORATADINE 10 MG TAB PO SCH (08:36)
[2018-10-25] MEDS: FERROUS SULFATE 325 MG TAB PO SCH (08:36)
[2018-10-25] MEDS: PANTOPRAZOLE SOD 40 MG TABEC PO SCH ×2 (08:36→16:52)
[2018-10-25] MEDS: DOCUSATE SODIUM 100 MG CAP PO SCH ×2 (08:36→16:50)
--- NOTE | 2018-10-25 08:50 | NUR ---
as per patient's daughter patient is so weak, hands are little shaky she said " Its a new behavior from my mom". On assessment patient speaks slowly, little hard time to drink liquids, little hard time to lift both arm easily but able to squeeze strongly. Notified OPEN HEARTH FURNACE LABORER of Dr Disla, new order recvd to CT Brain wo contrast Stat. will continue monitor
[2018-10-25] MEDS: TIMOLOL MALEATE(OPTHALMIC) 1 EA BTL OU SCH (10:05)
[2018-10-25] MEDS: BRIMONIDINE TARTRATE 0.15% OPTH DRPS 10ML BTL OP SCH ×2 (10:15→17:43)
--- NOTE | 2018-10-25 10:43 | Diagnostic Imaging Report ---
Examination: CT head without contrast Clinical Indication: Slow speech. Technique: Transaxial noncontrast images from the skull base through the vertex were obtained. Sagittal and coronal reformatted images were done. Dose modulation, iterative reconstruction, and/or weight based adjustment of the mA/kV was utilized to reduce the radiation dose to as low as reasonably achievable. Comparison: 09/27/[address] Findings: Scalp: No abnormalities. Bones: Intact. No fractures. No blastic or lytic lesions. Brain sulci: Mild volume loss or patient's age. 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 Extra-axial space: No abnormalities. Parenchyma: Again demonstrated are confluent areas of low-attenuation within subcortical and periventricular white matter, nonspecific, but could represent microvascular ischemic disease. 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 Suprasellar region: No abnormalities. Craniocervical junction: The foramen magnum is patent. No Chiari one malformation. Incidental findings: Atherosclerotic calcification of the cavernous and supraclinoid internal carotid arteries. Impression: 1. No acute intracranial finding when compared to prior head CT performed September 27, 2016. 2. Unchanged moderate chronic microvascular ischemic change. 3. 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 Signed by: Dr. Whitney Peña M.D. on 10/25/2018 10:40 AM
--- NOTE | 2018-10-25 12:34 | NUR ---
CT Brain result notified Sanjuanita PARK, No new orders recvd.
--- NOTE | 2018-10-25 17:41 | NUR ---
Paged Sanjuanita PARK regarding vanco trough 20.0,awaiting new orders
[2018-10-25] MEDS ORDERED: SODIUM CHLORIDE 0.9% 1000ML 1,000 ML IV SCH (18:00)
[2018-10-25] MEDS: VANCOMYCIN 1GM/NS 250 ML 250 ML IV SCH (18:00)
--- NOTE | 2018-10-25 18:32 | NUR ---
had done straight cath to clean urine and sent to lab. IV fluids on flow, patient resting in bed, no distress, family at bed side
[2018-10-25 19:08] LABS: CLARITY,URINE CLOUDY (CLEAR); COLOR,URINE YELLOW (YELLOW)
[2018-10-25 19:09] LABS: AMORPHOUS SEDIMENT,URINE MODERATE (FEW); BACTERIA,URINE MANY /HPF; BILIRUBIN,URINE NEGATIVE (NEGATIVE); EPITHELIAL CELLS,URINE MODERATE /LPF; KETONES,URINE NEGATIVE (NEGATIVE); LEUKOCYTE ESTERASE ,URINE 1+ (NEGATIVE); NITRITE,URINE NEGATIVE (NEGATIVE); PROTEIN,URINE DIPSTICK 1+ (NEGATIVE); URINE UROBILINOGEN 0.2 mg/dL (0.2 - 1); WBC,URINE (MAN) 21-50 /HPF (0-5)
[2018-10-25 19:10] LABS: YEAST,URINE MANY
--- NOTE | 2018-10-25 19:15 | NUR ---
Received patient awake on bed, daughter at the bedside. Call light within easy reached, advised to call for assistance anytime when needed. Bed alarm on, bed in low position and locked. Patient is not in distress, no complaints of pain at this time. Will continue to monitor closely
[2018-10-25] MEDS: LATANOPROST(OPTH) 2.5 ML BTL OP SCH (20:03)
[2018-10-26] VITALS: BP 101/51
[2018-10-26 03:29] LABS: BASOPHILS % 0.6 % (0.0-1.0); EOSINOPHILS # (AUTO) 0.2 (0.0-0.4); EOSINOPHILS % 3.7 % (0.0-6.0); LYMPHOCYTES # (AUTO) 1.6 (1.0-3.2); LYMPHOCYTES % 24.9 % (18.0-39.1); MEAN CORPUSCULAR HEMOGLOBIN 27.8 pg (28-32); MEAN CORPUSCULAR HGB CONC 30.9 g/dL (31-35); MEAN CORPUSCULAR VOLUME 89.9 fL (81-99); MONOCYTES # (AUTO) 0.6 (0.2-0.8); MONOCYTES % 8.9 % (4.4-11.3); NEUTROPHILS # (AUTO) 3.9 (2.1-6.9); NEUTROPHILS % 60.8 % (38.7-80.0); PLATELET COUNT 289 x10e3/uL (140-360); RED BLOOD COUNT 2.48 x10e6/uL (3.6-5.1)
[2018-10-26 03:33] LABS: HEMATOCRIT 22.3 % (34.2-44.1); HEMOGLOBIN 6.9 g/dL (12.0-16.0)
[2018-10-26 03:45] LABS: ANION GAP 17.2 mmol/L (8-16); CREATININE, SERUM 3.11 mg/dL (0.57-1.11); MAGNESIUM 1.8 MG/DL (1.3-2.1); POTASSIUM 4.2 mmol/L (3.5-5.1)
[2018-10-26 04:00] VITALS: BP 113/56
--- NOTE | 2018-10-26 04:04 | NUR ---
paged Sanjuanita PARK to relay lab result, left a VM, awaiting call back
[2018-10-26] MEDS: CLONIDINE HCL 0.3 MG TAB PO SCH ×2 (06:00→13:16)
[2018-10-26] MEDS: LEVOTHYROXINE SODIUM 50 MCG TAB PO SCH (06:00)
--- NOTE | 2018-10-26 06:05 | NUR ---
paged UNIX DEVELOPER to relay lab results, awaiting call back
[2018-10-26] MEDS ORDERED: SODIUM CHLORIDE 0.9% 250ML 250 ML IV ONE (06:45)
--- NOTE | 2018-10-26 06:45 | NUR ---
Sanjuanita PARK is rounding, aware of pts Hgb level
[2018-10-26] MEDS: INSULIN REGULAR, HUMAN 100 UNIT/1 ML 3ML VIAL SQ SCH ×2 (07:30→12:20)
[2018-10-26 08:00] VITALS: BP 181/74
[2018-10-26] MEDS: CITALOPRAM HYDROBROMIDE 20 MG TAB PO SCH (09:41)
[2018-10-26] MEDS: CARVEDILOL 12.5 MG TAB PO SCH (09:41)
[2018-10-26] MEDS: FERROUS SULFATE 325 MG TAB PO SCH (09:41)
[2018-10-26] MEDS: SITAGLIPTIN 100 MG TAB PO SCH (09:41)
[2018-10-26] MEDS: BRIMONIDINE TARTRATE 0.15% OPTH DRPS 10ML BTL OP SCH (09:41)
[2018-10-26] MEDS: TIMOLOL MALEATE(OPTHALMIC) 1 EA BTL OU SCH (09:41)
[2018-10-26] MEDS: LORATADINE 10 MG TAB PO SCH (09:41)
[2018-10-26] MEDS: DOCUSATE SODIUM 100 MG CAP PO SCH (09:41)
[2018-10-26] MEDS: POTASSIUM CHLORIDE 20 MEQ TAB CR PO SCH (09:42)
[2018-10-26] MEDS: ASCORBIC ACID 500 MG TAB PO SCH (09:42)
[2018-10-26] MEDS: PANTOPRAZOLE SOD 40 MG TABEC PO SCH (09:42)
[2018-10-26] MEDS: FUROSEMIDE 40 MG TAB PO SCH (09:42)
[2018-10-26] MEDS: GEMFIBROZIL 600 MG TAB PO SCH (09:42)
[2018-10-26 09:51] VITALS: BP 181/74
[2018-10-26] MEDS ORDERED: SODIUM CHLORIDE 0.9% 250ML 250 ML ONE (09:56)
--- NOTE | 2018-10-26 10:45 | NUR ---
Blood transfusion initiated , no adverse reaction noted in first 30 mins, no distress noted, keep monitoring
[2018-10-26 12:00] VITALS: BP 187/74
--- NOTE | 2018-10-26 13:05 | NUR ---
Blood transfusion 1 unit has completed, no adverse reaction noted, denies any SOB or chest pain, scheduled Clonidine 0.3mg given for elevated BP 195/79, will recheck BP. keep monitoring, patient had lunch
[2018-10-26] MEDS: HYDRALAZINE HCL 20 MG/ML VIAL IV PRN (14:05)
[2018-10-26 16:03] VITALS: BP 182/84
--- NOTE | 2018-10-26 17:11 | NUR ---
IMM SIGNED AND ON CHART COPY TO PT CHOICE LETTER FOR [facility] AT [facility] COPY OF CHOICE LETTER TO PT FAXED CLINICAL INFORMATION TO [facility] AT [phone] CONFIRMATION REC'D
--- NOTE | 2018-10-26 17:25 | NUR ---
Called Dr Oneal, she stated from her standpoint patient can be discharged, Notified Sanjuanita PARK
--- NOTE | 2018-10-26 17:32 | NUR ---
Notified Sanjuanita PARK regarding Vanco trough, new order recvd to don't give today's dose and patient OK to be discharged
--- NOTE | 2018-10-26 18:39 | NUR ---
patient discharged home, IV canula 2 removed with tip intact, no ss infiltration noted, her daughter at bed side, got all personnel belongings with patient, prescription given, transported via wheelchair to front lobby.
--- NOTE | 2018-10-26 19:07 | Consultation ---
DATE OF CONSULTATION: October 26, 2018 NEUROLOGY CONSULTATION HISTORY OF PRESENT ILLNESS: Ms. Morales is an 88-year-old [id number] woman with past medical history significant for hypertension, hyperlipidemia, diabetes mellitus type 2, chronic kidney disease stage 4 or 5, and anemia of chronic disease, admitted to [facility] on October 17, 2018, with multiple medical problems including but not limited to: Subjective and objective fevers, urinary tract infection, nasal congestion, productive cough with yellow sputum, and nausea. Throughout this hospitalization, the patient has been noted to be intermittently confused. This was brought to the attention of the attending service by the patient's daughter yesterday, October 25, 2018. A neurology consultation is requested for further evaluation of confusion. There are no family members available at the bedside or by telephone. History is obtained from the patient, review of the electronic medical records, and hospital staff. Ms. Morales reports she has not been confused during this hospitalization. She reports she is not confused at home; she knows "exactly what is going on all the time." According to hospital staff, Ms. Morales has appeared intermittently confused throughout her 10-day hospitalization. When asked to further describe this confusion, hospital staff report the patient sometimes has difficulty supplying identifying information (correct date, allergies, et cetera). Ms. Morales does report impairments of gait and poor balance, but these symptoms are chronic. According to hospital staff, the patient has been wheelchair-bound throughout this hospitalization. She is able to assist with transfers from a chair to a bed. Ms. Morales does not endorse urinary incontinence, either in the hospital or at home. As stated above, no additional information is available at present due to an inability to contact family members by telephone. REVIEW OF SYSTEMS: Nasal congestion, productive cough, nausea, possible confusion, impairment of gait and balance which is reportedly chronic. Otherwise the 12-point review of systems is negative. 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 PAST SURGICAL HISTORY: Bilateral cataract removal, tonsillectomy, total hysterectomy. PAST HOSPITALIZATIONS: Surgeries/procedures as listed, childbirth x3. FAMILY MEDICAL HISTORY: The patient's paternal and maternal grandparents are . Their medical histories are unknown. The patient's father is from lung cancer. Ms. Morales's mother is . Her only known medical history was arthritis. Ms. Morales had 2 brothers, both of whom are from natural causes. The patient had 3 children, 1 son and 2 daughters. One daughter is from complications of systemic lupus erythematosus. The remaining daughter and son are alive and healthy. SOCIAL HISTORY: Ms. Morales is . She is a resident at [facility]. The patient is retired. She does not report current or prior tobacco, alcohol, or recreational drug use. HOME MEDICATIONS: Reviewed. Please see the list of home medications available in the electronic medical record. HOSPITAL MEDICATIONS: Reviewed. Please see the list of hospital medications available in the electronic medical record. ALLERGIES: PENICILLIN, SULFA, CODEINE. NO KNOWN FOOD ALLERGIES. NO KNOWN ALLERGIES TO LATEX. NO KNOWN ALLERGIES TO IODINE OR OTHER CONTRAST MATERIALS. PHYSICAL EXAMINATION VITAL SIGNS: Height 60 inches, weight 150 pounds, BMI 29.4 kg per meter squared. Blood pressure 195/79 mmHg. Pulse 67 beats per minute. Respiratory rate 22 breaths per minute. Oxygen saturation 98% on room air. GENERAL: The patient is awake and alert, does not appear distressed. Overweight. HEENT: Normocephalic, atraumatic. Pupils are surgical. Moist mucous membranes. NECK: Supple. No appreciable thyromegaly. No appreciable carotid bruits. CARDIOVASCULAR: S1, S2, regular rate and rhythm. No murmurs, rubs, or gallops. RESPIRATORY: Clear to auscultation bilaterally. No wheezes, rhonchi, or rales. EXTREMITIES: The skin is warm and dry. No clubbing or cyanosis. There is trace pretibial pitting edema present. The posterior tibial and dorsalis pedis pulses are 1+ and symmetric. SKIN: No rashes or lesions. NEUROLOGIC MEMORY/ATTENTION: The patient is awake and alert, oriented to person, place, time, and moderately to situation. CRANIAL NERVES: Cranial nerve 1--Not tested. Cranial nerve 2, 3, 4, and 6--Pupils are surgical. Extraocular movements intact. No nystagmus. Cranial nerve 5--Sensation to light touch is intact in the bilateral V1 through V3 distributions. Strength of the temporalis and masseter muscles is within normal limits. Cranial nerve 7--The face is symmetric as are all facial movements. Strength is within normal limits. Cranial nerve 8--Hearing is diminished to finger rub bilaterally. Cranial nerve 9, 10--The soft palate elevates equally and symmetrically. Cranial nerve 11--Normal strength of the bilateral sternocleidomastoid and trapezius muscles. Cranial nerve 12--The tongue protrudes midline and moves symmetrically from side to side. STRENGTH: Bulk is normal. Strength is 5/5 in the bilateral deltoids, biceps, triceps, wrist flexors and extensors, finger flexors and extensors, and intrinsic hand muscles. Strength is 4/5 in the flexor muscles of the bilateral lower extremities. Strength is 4+/5 in the extensor muscles of the bilateral lower extremities. Tone is normal. DTRS: Deep tendon reflexes are 2+ and symmetric at the triceps, biceps, brachial radialis, and patellas. Deep tendon reflexes are absent and symmetric at the Achilles. Plantar responses are flexor bilaterally. SENSATION: Sensation is intact to light touch in both arms and both legs. CEREBELLAR: Elttgc-vqvw-gqnjfm and heel-avelar movements are intact without dysmetria or other impairment. GAIT: Deferred. SPEECH: Spontaneous speech is normal without appreciable dysarthria or aphasia. Repetition is intact. INVOLUNTARY MOVEMENTS: None. PRONATOR DRIFT: None. LABORATORY DATA: The most recent basic metabolic panel is significant for a decreased carbon dioxide level of 18, an elevated anion gap of 17.2, an elevated BUN of 49, a creatinine of 3.11, a low estimated GFR of 14. A recent B-natriuretic peptide is 525.0. The most recent CBC with differential and platelets reveals a white blood cell count of 6.43 with a normal differential. The hemoglobin and hematocrit are 6.9 and 22.3, respectively. The platelet count is 289. A urinalysis collected on October 25, 2018, revealed cloudy urine with 1+ protein, 1+ leukocyte esterase, 6-10 red blood cells, 21-50 white blood cells, moderate urine epithelial cells with many urine bacteria. C. difficile toxin A and B was negative on October 19, 2018. Influenza types A and B antigen were negative on October 17, 2018. A urine culture collected on October 17, 2018, grew Enterococcus faecalis. Blood cultures collected on October 17, 2018, revealed no growth after 5 days. DIAGNOSTIC STUDIES Chest x-ray October 17, 2018: No acute radiographic abnormality. Unchanged mild prominence of the right hilum which could represent prominent pulmonary arteries or adenopathy. Echocardiogram October 18, 2018: Ejection fraction 45% to 50%. Left ventricular hypertrophy. Left atrial enlargement. Trace to mild mitral and tricuspid regurgitation as well as pulmonic insufficiency. Thickened mitral valve, possible vegetation on the mitral valve. CT of the brain without contrast October 25, 2018: On my review, there is no evidence of recent large territorial ischemia, hemorrhage, mass, or mass effect. There is diffuse cerebral atrophy, slightly more than expected for the patient's age. Ventriculomegaly is out of proportion to the degree of cerebral atrophy. The area surrounding the ventricles, particularly the anterior and posterior horns of the lateral ventricles, are hypodense. These hypodensities may represent transependymal flow of cerebrospinal fluid versus moderate chronic small-vessel ischemic disease. ASSESSMENT AND PLAN: Ms. 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 At present, the only significant finding on the patient's neurological examination is mild weakness in multiple muscles examined in both legs. Ms. Morales is oriented to person, place, time, and moderately to situation. The patient's laboratory data and other diagnostic studies have been reviewed and are documented above. On the report of the CT of the brain without contrast, the neuroradiologist listed a possible diagnosis of normal-pressure hydrocephalus. However, in my opinion, Ms. Morales's history and neurological examination are not compatible with the diagnosis of normal-pressure hydrocephalus. 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 Continued treatment of the aforementioned by the primary service is recommended. There are no other recommendations from Neurology at this time. Thank you for this consultation. Please call again with any questions or concerns. Time spent: 70 minutes. Job#: [id number] [id number]
[2018-10-27] MEDS ORDERED: POTASSIUM CHLORIDE 20 MEQ TAB CR PO SCH (09:00)
--- NOTE | 2018-10-27 18:23 | Discharge Summary ---
ADMISSION DIAGNOSES 1. Fluid overload. 2. Enterococcus urinary tract infection present on admission. 3. Hypertension. 4. Insomnia. 5. Type 2 diabetes. 6. Hypothyroidism. 7. Anemia, requiring infusion. 8. Chronic kidney disease, 4. 9. Obesity. 10. Pancreatitis. DISCHARGE DIAGNOSES 1. Fluid overload. 2. Enterococcus urinary tract infection present on admission. 3. Hypertension. 4. Insomnia. 5. Type 2 diabetes. 6. Hypothyroidism. 7. Anemia, requiring infusion. 8. Chronic kidney disease, 4. 9. Obesity. 10. Pancreatitis. 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 HISTORY: Patient has a history of hypertension, insomnia, type 2 diabetes, hypothyroidism, anemia, CKD 4, obesity, chronic . SURGICAL HISTORY: Hysterectomy and tonsillectomy. FAMILY HISTORY: Patient's grandmom has diabetes. Patient's mom has stroke. SOCIAL HISTORY: Noncontributory. HOSPITAL COURSE: An 88-year-old female complains of dry cough, runny nose, nausea, and fever of 99.5 on the day prior to admission. She denies shortness of breath, vomiting, dysuria, or hematuria. Symptoms improved with IV antibiotics in the ER, nothing worsens the symptoms. Her RN reports the patient was brought to the hospital by her daughter for nausea, vomiting, and intermittent diarrhea as well as constipation. On admission, patient had a chest x-ray that showed no abnormality. Urine came back positive for enterococcus. Blood cultures were negative. Echo preliminary showed an EF of 45 to 50% and final echo report showed calcification on mitral annular and mild mitral regurgitation. Discharge was initially held due to waiting for the final report of the echo because the preliminary echo said possible vegetation. Blood cultures were negative and final echo report did not show vegetation so the patient was discharged home after completion of IV antibiotic for UTI. She was discharged to assisted living facility. On day of discharge, she will require 1 unit of PRBC as her hemoglobin dropped to 6.9. Although the daughter is usually against blood transfusion since she is now agreeing to transfusion. Vital signs stable. Patient is afebrile. DICTATED BY SARAHI ECHAVARRIA NP JP ALVARADO MD Job#: [id number] ALMA DELIA
== END 2018-10-26 18:28 | disposition home health service (06) | DRG 291 ==
LOC: ER 12:48 → ERHOLD 17:10 → IMCU 20:53 → OBSVTOIN 10-20 12:57 → MED/SURG3 10-21 15:05
PROVIDERS: ADMIT Internal Medicine; ATTEND Internal Medicine
DX: I13.0 Hypertensive heart and chronic kidney disease with heart failure and stage 1 through stage 4 chronic kidney disease, or unspecified chronic kidney disease (principal); K85.90 Acute pancreatitis without necrosis or infection, unspecified; I50.23 Acute on chronic systolic (congestive) heart failure; N39.0 Urinary tract infection, site not specified; N18.4 Chronic kidney disease, stage 4 (severe); G91.2 (Idiopathic) normal pressure hydrocephalus; B95.2 Enterococcus as the cause of diseases classified elsewhere; G47.00 Insomnia, unspecified; E11.22 Type 2 diabetes mellitus with diabetic chronic kidney disease; E66.9 Obesity, unspecified; Z68.29 Body mass index [BMI] 29.0-29.9, adult; E03.9 Hypothyroidism, unspecified; I34.0 Nonrheumatic mitral (valve) insufficiency; R09.81 Nasal congestion; R26.81 Unsteadiness on feet; E78.5 Hyperlipidemia, unspecified; D63.8 Anemia in other chronic diseases classified elsewhere; R41.0 Disorientation, unspecified; Z79.4 Long term (current) use of insulin
CPT/HCPCS: 36415; 70450; 71045; 80048; 80053; 80202; 81001; 82550; 82553; 82948; 83036; 83690; 83735; 83880; 84439; 84443; 84484; 85025; 85610; 85730; 86850; 86900; 86920; 87040; 87086; 87186; 87400; 87493; 93005; 93306; 96372; 97139; 99284; G0378; J0360; J0696; J1940; J2405; J3370; J7030; J7050; P9016

== ENCOUNTER 2019-12-13 10:39 | Outpatient (RCR) | payer MEDICARE, BC ==
[~2019-12-13 10:39] MED LIST changes: +ALPHAGAN P5 ML OU; +AMLODIPINE BESYL5 MG PO; +ASCORBIC ACID500 MG PO; +CITALOPRAM HBR10 MG PO; +CRANBERRY CONC500 MG; +FERROUS SULFAT325 MG PO; +FEXOFENADINE HC60 MG; +FUROSEMIDE40 MG PO; +GEMFIBROZIL600 MG PO; +LIDOCAINE/PRILOCAINE 2.5-2.5% KIT ONE; +PROAIR HFA INH8.5 GM PO; +PROCRIT20000 UNIT SC; +TIMOPTIC5 ML OU; +VITAMIN B-121000 MCG PO
[2019-12-13] MEDS ORDERED: LIDOCAINE/PRILOCAINE 2.5-2.5% KIT ONE (14:48)
== END 2019-12-15 ==
LOC: WCC 10:39
PROVIDERS: ATTEND Family Medicine Adult Medicine
DX: E11.69 Type 2 diabetes mellitus with other specified complication (principal); E11.65 Type 2 diabetes mellitus with hyperglycemia; A41.9 Sepsis, unspecified organism; L89.44 Pressure ulcer of contiguous site of back, buttock and hip, stage 4; L89.623 Pressure ulcer of left heel, stage 3; L89.316 Pressure-induced deep tissue damage of right buttock; L89.610 Pressure ulcer of right heel, unstageable; I70.203 Unspecified atherosclerosis of native arteries of extremities, bilateral legs; I73.89 Other specified peripheral vascular diseases; J90 Pleural effusion, not elsewhere classified; N18.6 End stage renal disease; I10 Essential (primary) hypertension; A49.8 Other bacterial infections of unspecified site; D64.9 Anemia, unspecified; E03.8 Other specified hypothyroidism; I48.91 Unspecified atrial fibrillation; I50.9 Heart failure, unspecified; I63.9 Cerebral infarction, unspecified; J44.9 Chronic obstructive pulmonary disease, unspecified; N39.0 Urinary tract infection, site not specified; R15.9 Full incontinence of feces; Z74.01 Bed confinement status